=== PATIENT | female | born 1940 | race African-American/Black ===

== ENCOUNTER → 2017-01-04 16:08 | Outpatient (CLI) | payer MEDICARE, OTHER ==
[2016-02-28 13:22] VITALS: BMI 34.9
[~2017-01-04 16:08] MED LIST: BUMEX 1 MG TAB1 MG PO; CALAN SR180 MG PO; CATAPRES0.2 MG PO; CIPRO500 MG PO; COZAAR100 MG PO; DICLOFENAC SODI50 MG PO; GLUCOTROL 5 MG T5 MG PO; HYDRALAZINE HCL25 MG PO; HYDRALAZINE HCL50 MG PO; HYDROCODON-ACE1 EAC7 PO; ISOSORBIDE MONO30 M1 PO; Imdur PO; K-TAB10 MEQ PO; NORMODYNE / TR300 MG; NORMODYNE / TR300 MG PO; POTASSIUM CL MICRO PO; TYLENOL W/CODEI1 TAB; TYLENOL W/CODEI1 TAB PO; VISTARIL50 MG PO; ZANAFLEX4 MG PO; ZOCOR20 MG PO
[2017-01-04 16:43] LABS: BASOPHILS 0.3 % (0-2); EOSINOPHILS 2.8 % (0-7); HEMATOCRIT 29.8 % (36.0-48.0); HEMOGLOBIN 9.7 g/dL (12-16); IMMATURE GRANULOCYTES 0.1 % (0-5); MCH 26.9 pg (26.0-34.0); MCHC 32.6 g/dL (31.0-37.0); MCV 82.8 fL (80.0-100.0); MEAN PLATELET VOLUME 12.5 fL (7.4-10.4); MONOCYTES 9.7 % (2-11); NEUTROPHILS 65.1 % (40-80); WBC 7.8 10x3/uL (4.8-10.8)
[2017-01-04 17:10] LABS: PLATELET COUNT 326 10x3/uL (130-400)
[2017-01-04 17:31] LABS: % SATURATION 21 % (15-55); IRON 58 ug/dl (35-150); TOTAL IRON BIND CAPACITY 264 ug/dl (260-445); UNSAT IRON BIND CAPACITY 206 ug/dl (150-375)
[2017-01-04 17:47] LABS: T4 THYROXIN - FREE 1.13 ng/dL (0.76-1.46); THYROID STIMULATING HORMONE 0.98 uIU/mL (0.36-3.74)
== END | disposition home or self-care (01) ==
LOC: D.RAD 16:08
PROVIDERS: Internal Medicine Gastroenterology
DX: R53.83 Other fatigue (principal); R15.9 Full incontinence of feces; K59.00 Constipation, unspecified

== ENCOUNTER 2017-06-07 07:47 | Emergency (ER) | payer MEDICARE, OTHER ==
[2016-02-28 13:22] VITALS: BMI 34.9
== END 2017-06-07 09:03 | disposition home or self-care (01) ==
LOC: D.ER 07:47
DX: M25.512 Pain in left shoulder (principal); E11.9 Type 2 diabetes mellitus without complications; I10 Essential (primary) hypertension

== ENCOUNTER 2017-06-30 12:20 | Inpatient (IN) | payer MEDICARE, OTHER ==
[2017-06-30 19:06] LABS: BASOPHILS 0.2 % (0-2); EOSINOPHILS 0.3 % (0-7); HEMOGLOBIN 11.7 g/dL (12-16); IMMATURE GRANULOCYTES 0.2 % (0-5); LYMPHOCYTES 7.8 % (15-50); MCH 27.1 pg (26.0-34.0); MCHC 32.5 g/dL (31.0-37.0); MCV 83.3 fL (80.0-100.0); MEAN PLATELET VOLUME 11.4 fL (7.4-10.4); MONOCYTES 1.5 % (2-11); PLATELET COUNT 318 10x3/uL (130-400); RBC 4.32 10x6/uL (4.00-5.40); RDW 15.5 % (11.5-14.5); WBC 8.8 10x3/uL (4.8-10.8)
[2017-06-30 19:25] LABS: ALBUMIN 3.9 g/dL (3.4-5.0); ANION GAP 14.3 mmol/L (8-16); BILIRUBIN - TOTAL 0.48 mg/dL (0.2-1.3); CALCIUM 9.3 mg/dL (8.5-10.1); CARBON DIOXIDE 28.1 mmol/L (21.0-32.0); CREATININE - SERUM 1.5 mg/dL (0.6-1.3); POTASSIUM - SERUM 4.4 mmol/L (3.5-5.1); PROTEIN - SERUM 7.8 g/dL (6.4-8.2)
[2017-07-01] VITALS (26 sets, daily range): BP systolic 149–229; BP diastolic 74–104; BMI 29.4; BMI 29.8
--- NOTE | 2017-07-01 00:21 | NUR ---
PT ARRIVE TO ICU VIA ER STAFF. MOVED PT OVER X4 ASSIST. V/S: HR 61 BPM, BP 160/104, RR 22, SHALLOW, O2 SAT 97%, 1 L/MIN, TEMP 98.4 TEMPORAL. SHE COMPAINS OF PAIN IN HER L SHOULDER, ARM AND HAND A 10/10 AND DESCRIBES IT STABBING INTENSE PAIN. HEAT PACK PLACED ON SHOULDER AND SHE STATES THAT THE HEAT MAKES IT FEEL BETTER. S1S2 AUDIBLE, EXP WHEEZES HEARD BILAT THROUGHOUT ALL LOBES. ABD IS FLAT AND NON-TENDER TO TOUCH, BS ACTIVE X4. RADIAL AND PEDAL PULSES PALP. SCD'S PUT ON PT. SKIN IS CLEAR AND SMOOTH. PIV TO R HAND, SALINE LOC'D. BRIEF WAS PUT ON PT BY ER STAFF. BLANKETS COVERING PT PER REQUEST. BED ALARM ON, BED IN LOWEST POSITION. CALL LIGHT IN REACH. WILL CONT WITH POC.
--- NOTE | 2017-07-01 01:15 | NUR ---
SPOKE WITH DR. SAMUEL. NEW ORDERS RECIEVED. WILL CONT WITH POC.
--- NOTE | 2017-07-01 01:23 | NUR ---
ADMINISTERED PRN TYLENOL. REPOSITONED FOR COMFORT. WILL CONT WITH POC.
--- NOTE | 2017-07-01 01:30 | NUR ---
CALLED HOUSE SUPP FOR 0.2 MG CLONIDINE. ORDER PRINTED AND PUT ON [employer].
--- NOTE | 2017-07-01 02:00 | NUR ---
AWAITING CLONIDINE. PT IS LYING IN BED WITH TV ON. CALL LIGHT IN REACH.
--- NOTE | 2017-07-01 02:30 | NUR ---
ADMINISTERED CLONIDINE 0.2 MG BP 229/100. PT IS SLEEPING AT THIS TIME AND DOES NOT APPEAR TO BE IN ANY PAIN. HEAT PACK IS STILL ON L SHOULDER. SKIN ASSESSED, WNL. WILL CONT TO MONITOR.
--- NOTE | 2017-07-01 03:30 | NUR ---
PT REQUESTS NEW HEAT PACK. DELIVERED PROMPTLY. SHE IS NOT SCREAMING OUT IN PAIN AND IS DRIFTING OFF TO SLEEP. BP IS 216/87 HR 76 NORMAL SINUS RHYTHM. O2 SAT 99%. CALL LIGHT IN REACH. BED IN LOWEST POSITION. WILL CONT WITH POC.
[2017-07-01 04:25] LABS: BASOPHILS 0 % (0-2); EOSINOPHILS 0 % (0-7); HEMATOCRIT 35.6 % (36.0-48.0); HEMOGLOBIN 11.7 g/dL (12-16); LYMPHOCYTES 8.5 % (15-50); MCH 27.2 pg (26.0-34.0); MCHC 32.9 g/dL (31.0-37.0); MCV 82.8 fL (80.0-100.0); MEAN PLATELET VOLUME 11.5 fL (7.4-10.4); MONOCYTES 0.7 % (2-11); NEUTROPHILS 90.8 % (40-80); PLATELET COUNT 348 10x3/uL (130-400); RDW 15.7 % (11.5-14.5)
[2017-07-01 04:34] LABS: WBC 5.4 10x3/uL (4.8-10.8)
[2017-07-01 04:39] LABS: ANION GAP 13.2 mmol/L (8-16); CALCIUM 9.5 mg/dL (8.5-10.1); CARBON DIOXIDE 29.7 mmol/L (21.0-32.0); CREATININE - SERUM 1.3 mg/dL (0.6-1.3); POTASSIUM - SERUM 3.9 mmol/L (3.5-5.1)
--- NOTE | 2017-07-01 05:00 | NUR ---
PT SITTING UP IN BED REQUESTING FOOD AND BEVERAGE. DELIVERED SANDWICH TRAY AND REFRESHMENTS PROMPTLY. PT IS A&O X4 AND STATES THAT SHE IS IN PAIN. EXPLAINED TO HER THAT I CANNOT ADMINISTER ANY MORE PAIN MEDS TONIGHT DUE TO THE DECREASE IN HER RESP IN THE ER. SHE STATES THAT SHE UNDERSTANDS. REPOSITIONED FOR COMFORT. WILL CONT WITH POC.
[2017-07-01] MEDS ORDERED: NAPROSYN500 MG PO (08:41)
[2017-07-01] MEDS ORDERED: NORVASC5 MG PO (08:42)
[2017-07-01] MEDS ORDERED: ULTRAM50 MG PO (08:43)
--- NOTE | 2017-07-01 09:03 | NUR ---
0900 LABETALOL 300MG GIVEN PER MAR, WILL WATCH FOR EFFECTIVENESS.
[2017-07-01] MEDS ORDERED: CATAPRES0.1 MG PO (09:05)
[2017-07-01 10:26] LABS: CKMB 2.6 U/L (0.0-3.6)
--- NOTE | 2017-07-01 10:33 | NUR ---
NOTIFIED BY LAB OF BUMP IN [place] OF 0.09. SPOKE WITH DR. RAMSEY VIA PHONE. V/O FOR CARDIOLOGY CONSULT. SPOKE WITH MAXIMINO IN PRESSURE SUPERVISOR. AWARE OF CONSULT.
--- NOTE | 2017-07-01 10:46 | NUR ---
0700 AM ASSESSMENT DOCUMENTED PER FLOWSHEET. PATIENT IS C/O LEFT ARM PAIN FROM SHOULDER TO TIP OF FINGERS. PULSE PALP AND EQUAL BILATERAL ARMS. RATES PAIN 5/10. TYLENOL GIVEN ORDERED.
--- NOTE | 2017-07-01 10:56 | NUR ---
DR. WHITEHEAD AT BEDSIDE FOR CARDIOLOGY CONSULT. V/O FOR ECHO, BNP AND LOPRESSOR.
--- NOTE | 2017-07-01 11:37 | NUR ---
WENT TO FLUSH RIGHT HAND PIV, LINE IS BLOWN. PIV REMOVED WITH TIP INTACT. BANDAID APPLIED. NO VISIBLE ACESS, PATIENT REFUSES TO USE LEFT ARM. CASPER SAGASTUME CONTACTED FOR PIV.
--- NOTE | 2017-07-01 11:49 | NUR ---
1100 REASSESSMENT DOCUMENTED PER FLOWSHEET.
--- NOTE | 2017-07-01 12:58 | NUR ---
1230 OUT OF BED TO BEDSIDE CHAIR, COMPLETE BATH GIVEN, LOTION APPLIED TO ARMS/LEGS AND BACK. NON SLIP SOCKS APPLIED BEFORE AMBULATING TO CHAIR. SKIN 100% INTACT. LINENS TO BED CHANGED. PATIENT RESTING COMFORTABLY AT BEDSIDE.
--- NOTE | 2017-07-01 13:07 | NUR ---
20G PIV PLACED TO RIGHT UPPER ARM BY CASPER SAGASTUME USING ULTRASOUND GUIDANCE. SALINE LOCKED.
--- NOTE | 2017-07-01 15:15 | NUR ---
1500 REASSESSMENT DOCUMENTED PER FLOWSHEET. 1500 MEDS GIVEN PER MAR. PATIENT TRANSPORTED TO MRI VIA WHEELCHAIR BY EARLE.
--- NOTE | 2017-07-01 16:43 | NUR ---
BACK FROM MRI, VOIDED VIA BEDSIDE POTTY. BACK TO BEDSIDE CHAIR, EATING DINNER.
--- NOTE | 2017-07-01 19:10 | NUR ---
SHIFT ASSESSMENT COMPLETE. PT IS CRYING OUT IN PAIN STATING THAT HER SHOULDER IS HURTING HER A 10/10. REPOSITIONED FOR COMFORT AND ADMINISTERED PRN PAIN MEDS. V/S: HR 70, BP 188/87, RR 20, TEMP 97.7 ORAL. S1S2 AUDIBLE, NORMAL SINUS RHYTHM. ABD IS FLAT AND NON TENDER TO TOUCH, BS ACTIVE X4. PIV TO R UPPER ARM, SALINE LOC'D. SCD'S REMOVED AND SKIN ASSESSED, WNL. BED ALARM ON, SLIPPER SOCKS ON. HEAT PACK PLACED ON SHOULDER PER REQUEST. NO FURTHER NEEDS AT THIS TIME. WILL CONT TO MONITOR.
--- NOTE | 2017-07-01 20:15 | NUR ---
PT IS SCREAMING OUT IN PAIN STATING IT IS A 10/10. REPOSITIONED FOR COMFORT. PAGED DR. BOJORQUEZ. NEW ORDERS RECIEVED. WILL CONT TO MONITOR.
--- NOTE | 2017-07-01 20:28 | NUR ---
PLACED 0.4 SL NITRO TAB UNDER TONGUE. SHE STATES THAT SHE FEELS IF IT IS HELPING. LAB AT BEDSIDE. WILL CONT TO MONITOR.
[2017-07-01 21:21] LABS: CKMB 3.3 U/L (0.0-3.6); CREATINE KINASE 136 UL (21-215)
[2017-07-01 21:23] LABS: TROPONIN-I 0.091 ng/mL (0.000-0.060)
--- NOTE | 2017-07-01 21:30 | NUR ---
PT IS RESTING PEACEFULLY WITH NO SIGNS OF DISTRESS NOTED. BP 204/83 AT THIS TIME. SHE DENIES ANY REQUESTS. WILL CONT TO MONITOR.
--- NOTE | 2017-07-01 23:30 | NUR ---
REASSESSMENT COMPLETE. SHE REQUESTS TO SIT IN THE CHAIR AND STATES THAT SHE GOT BETTER REST THERE TODAY THAN IN THE BED. UP WITH ASSIST X1 TO CHAIR. FRESH PILLOWS AND BLANKETS PROVIDED. NO FURTHER CHANGES NOTED. WILL CONT WITH POC.
[2017-07-02] VITALS (24 sets, daily range): BP systolic 154–243; BP diastolic 70–123
--- NOTE | 2017-07-02 | NUR ---
0000: Pt resting in bed with eyes closed at this time. Pt without c/o. Allowed pt to cont to rest at this time. Pt HR 55-60 bpm.
--- NOTE | 2017-07-02 01:10 | NUR ---
PT RESTING IN CHAIR COMFORTABLY WITH NO SIGNS OF PAIN AT THIS TIME. WILL CONT TO MONITOR.
--- NOTE | 2017-07-02 03:30 | NUR ---
REASSESSMENT COMPLETE. NO CHANGES NOTED. PT CONTINUES TO SLEEP IN CHAIR. SHE STATES THAT HER PAIN IS A 5/10. REPOSITIONED AND LEANED CHAIR BACK FOR COMFORT. SHE STATEST THAT THAT FEELS BETTER. NO FURTHER REQUESTS. CALL LIGHT IN REACH. BP 203/90, HR 73, TEMP 99.0, RR 29, O2 SAT 98%. WILL CONT TO MONITOR.
[2017-07-02 04:24] LABS: BASOPHILS 0 % (0-2); EOSINOPHILS 0.5 % (0-7); HEMATOCRIT 32.3 % (36.0-48.0); HEMOGLOBIN 10.8 g/dL (12-16); IMMATURE GRANULOCYTES 0.3 % (0-5); LYMPHOCYTES 12.5 % (15-50); MCH 26.9 pg (26.0-34.0); MCHC 33.4 g/dL (31.0-37.0); MEAN PLATELET VOLUME 11.5 fL (7.4-10.4); MONOCYTES 8.9 % (2-11); NEUTROPHILS 77.8 % (40-80); PLATELET COUNT 342 10x3/uL (130-400); RBC 4.01 10x6/uL (4.00-5.40); RDW 15.5 % (11.5-14.5)
[2017-07-02 04:27] LABS: MCV 80.5 fL (80.0-100.0); WBC 10.1 10x3/uL (4.8-10.8)
[2017-07-02 04:55] LABS: C-REACTIVE PROTEIN 0.6 mg/dL (0.0-0.9); CALC OSMOLALITY 295 mosm/kg (275-300); CALCIUM 9.3 mg/dL (8.5-10.1); CARBON DIOXIDE 30.3 mmol/L (21.0-32.0); CHLORIDE - SERUM 104 mmol/L (98-107); CKMB 2.8 U/L (0.0-3.6); CREATININE - SERUM 1.6 mg/dL (0.6-1.3); GLUCOSE 190 mg/dL (74-106); POTASSIUM - SERUM 3.8 mmol/L (3.5-5.1); SODIUM 141 mmol/L (136-145); UREA NITROGEN 40 mg/dL (7-18); eGFR NON AFRICAN AMERICAN 33 mL/min (90-120)
[2017-07-02 05:05] LABS: TROPONIN-I 0.088 ng/mL (0.000-0.060)
--- NOTE | 2017-07-02 05:30 | NUR ---
ASSISTED PT BACK TO BED. STEADY GAIT. SHE STATES THAT SHE IS IN 10/10 PAIN. ADMINISTERED PRN PAIN MEDS AND PLACED A HEAT PACK ON L SHOULDER. WILL CONT TO MONITOR.
--- NOTE | 2017-07-02 07:54 | NUR ---
ASSISTED TO TOILET VIA STAND BY ASSIST, CONTINENT VOID. PT NOTED TO STATE OUT LOUD ABOUT HER DISCOMFORT. PHYSICIANS ARE AWARE. PT ALERT AND ORIENTED. WILL CONTINUE PLAN OF CARE.
--- NOTE | 2017-07-02 08:54 | NUR ---
RESTING QUIETLY AT THIS TIME. NO ACUTE DISTRESS NOTED. AWAKENS EASILY WHEN SPOKEN TO. WILL CONTINUE PLAN OF CARE.
--- NOTE | 2017-07-02 10:22 | NUR ---
ASSISTED TO TOILET VIA STAND BY ASSIST. CONTINENT VOID NOTED. PT NOTED TO STATE SHE FEELS MUCH BETTER. NO ACUTE DISTRESS NOTED. WILL CONTINUE PLAN OF CARE.
--- NOTE | 2017-07-02 11:18 | NUR ---
* Is the patient Alert and Oriented? Yes 0 * How many steps to enter\exit or inside your home? 1 0 * PCP Dr. Middleton 0 * Pharmacy [facility] in [place] 0 * Preadmission Environment Home Alone 0 * ADLs Independent 0 * Equipment Glucometer 0 * List name and contact numbers for known caregivers / representatives who currently or will assist patient after discharge: Matthew Carcamo [phone] RALEIGH Carcamo 0 * Additional services required to return to the preadmission environment? No 0 * Can the patient safely return to the preadmission environment? Yes 0 * Has this patient been hospitalized within the prior 30 days at any hospital? No Patient Name: SIRISHA ZHAO Admission Status: ER Accout number: [id number] Admission Date: 07-01-2017 : 1941 Admission Diagnosis:HYPOXEMIA Attending: AZAR SAMUEL Current LOS: 1 Planned Disposition: Home Primary Insurance: MEDICARE A & B Discharge Planning Comments: CM met with patient to assess dc plans/needs. Patient states she lives alone & is independent with all ADL's & AIDL's. She states her son or daughter in law will drive her home from hospital and will be available to help with any needs. She states she has had home health services in the past but does not think she will need them at dc at this time. CM will follow & assist as needed. Leather Belt Loop Cutter: Poonam Aguirre
--- NOTE | 2017-07-02 11:35 | NUR ---
NOTED CONSULT CHAVEZ DR GONZALEZ. WHEN CALLING DR DRAKE ANSWERING SERVICE TO PAGE TO NOTIFY OF CONSULT, THE ANSWERING SERVICE STATED THAT HE HAS ALREADY LEFT FOR THE WEEKEND AND IS ONLY TAKING CALLS FROM [facility] THIS WEEKEND AND NOT [facility]. CALLED DR BOJORQUEZ, PHYSICIAN WHO ORDERED CONSULT, FOR FURTHER ORDERS AND NOTED DR PEDRO IS ON THIS WEEKEND. PAGED AT THIS TIME. WAITING FOR CALLBACK. WILL CONTINUE PLAN OF CARE.
--- NOTE | 2017-07-02 11:41 | NUR ---
DR PEDRO IS NOTIFIED OF CONSULT AT THIS TIME.
--- NOTE | 2017-07-02 14:27 | NUR ---
ASSISTED TO BEDSIDE TOILET, CONTINENT VOID NOTED. PT UP IN BED AWAKE. NO ACUTE DISTRESS NOTED. PAIN LEVEL OF 2 OUT OF 10 TO LT ARM, PRN NORCO ADMIN. WILL CONTINUE PLAN OF CARE.
--- NOTE | 2017-07-02 16:11 | NUR ---
RESTING IN BED. RESPIRATIONS STEADY AND UNLABORED. NO ACUTE DISTRESS NOTED. AWAKENS EASILY WHEN SPOKEN TO. WILL CONTINUE PLAN OF CARE.
--- NOTE | 2017-07-02 17:22 | NUR ---
UP IN CHAIR BESIDE BED EATING SUPPER AT THIS TIME AND VISITING WITH VISITOR. DENIES ANY NEEDS. NO ACUTE DISTRESS NOTED. WILL CONTINUE PLAN OF CARE.
--- NOTE | 2017-07-02 19:02 | NUR ---
DR PEDRO HERE; ORDERS PLACED.
--- NOTE | 2017-07-02 19:45 | NUR ---
194: Faxed procedure for AM to [facility].
--- NOTE | 2017-07-02 20:00 | NUR ---
2000: Reviewed planned procedure with patient at this time. Pt verbalized understanding and asked for assistance to call family to review. Son called per pt request and update provided.
--- NOTE | 2017-07-02 20:30 | NUR ---
2030: Consents for planned procedure including blood and anesthesia reviewed with patient. Outcomes including risks and benefits reviewed with patient for procedure, blood administration, and anesthesia. Pt verbalized understanding and signed consents at this time.
--- NOTE | 2017-07-02 22:50 | NUR ---
2250: Pt crying out and thrashing in bed. Pt states he left shoulder and neck are hurting. Pt SBP >180 at this time. Pt rates pain 10/10. Rx admin at this time and warm pack placed on left shoulder. Pt states thankyou and I am so sorry.
[2017-07-03] VITALS (25 sets, daily range): BP systolic 152–207; BP diastolic 62–98
--- NOTE | 2017-07-03 00:30 | NUR ---
0030: Pt resting with eyes closed at this time. Pt SB/SR 55-65 bpm with SBP 160's at this time.
--- NOTE | 2017-07-03 03:30 | NUR ---
0330: Pt c/o pain in left shoulder. Pt describes as excrutiating pain. All measures to provide relief at this time. Rx admin as per EMAR. Pt remains SR 60's on CM with SBP 160-170.
--- NOTE | 2017-07-03 04:00 | NUR ---
0400: Pt assisted up OOB to bedside commode. Pt urinated 200cc of clear yellow UOP. Pt returned back to bed without difficulty. All monitors and alarms reestablished.
[2017-07-03 07:55] LABS: BASOPHILS 0.3 % (0-2); HEMATOCRIT 33.2 % (36.0-48.0); IMMATURE GRANULOCYTES 0.3 % (0-5); LYMPHOCYTES 24.9 % (15-50); MCHC 33.1 g/dL (31.0-37.0); MCV 81.4 fL (80.0-100.0); MONOCYTES 11.3 % (2-11); NEUTROPHILS 61.2 % (40-80); PLATELET COUNT 311 10x3/uL (130-400); RBC 4.08 10x6/uL (4.00-5.40); RDW 15.8 % (11.5-14.5)
[2017-07-03 08:01] LABS: WBC 7.2 10x3/uL (4.8-10.8)
--- NOTE | 2017-07-03 08:01 | NUR ---
UP IN BED VISITING WITH FAMILY. NOTED PT TO GO TO SURGERY TODAY. CONSENTS HAVE BEEN SIGNED AND FAMILY IS AWARE. PT DENIES ANY QUESTIONS OR CONCERNS. WILL CONTINUE PLAN OF CARE.
[2017-07-03 08:02] LABS: ANION GAP 10.6 mmol/L (8-16); CALCIUM 9.1 mg/dL (8.5-10.1); CARBON DIOXIDE 28.2 mmol/L (21.0-32.0); CREATININE - SERUM 1.4 mg/dL (0.6-1.3); POTASSIUM - SERUM 3.8 mmol/L (3.5-5.1)
[2017-07-03 08:52] LABS: INR 1.17 (0.85-1.17); PROTIME 14.8 SECONDS (11.6-15.0)
[2017-07-03 08:53] LABS: APTT 51.7 SECONDS (22.8-39.4)
--- NOTE | 2017-07-03 10:01 | NUR ---
UP IN BED VISITING WITH FAMILY. DENIES ANY NEEDS. NO ACUTE DISTRESS NOTED. WILL CONTINUE PLAN OF CARE.
[2017-07-03 11:31] LABS: APPEARANCE CLEAR (CLEAR); BILIRUBIN NEGATIVE (NEGATIVE); COLOR YELLOW (YELLOW); GLUCOSE NEGATIVE (NEGATIVE); KETONE NEGATIVE (NEGATIVE); NITRITE NEGATIVE (NEGATIVE); PROTEIN 3+ mg/dL (NEGATIVE); UROBILINOGEN NORMAL (NORMAL)
[2017-07-03 11:35] LABS: BACTERIA FEW /hpf (NONE SEEN); EPITHELIAL CELLS 0-5 /hpf (0-5); RED CELLS - URINE 0-5 /hpf (0-5)
--- NOTE | 2017-07-03 12:00 | NUR ---
UP IN BED VISITING WITH FAMILY AT THIS TIME. DENIES ANY NEEDS. NO ACUTE DISTRESS NOTED. PREOP HAS BEEN PERFORMED PER ORDERS. WILL CONTINUE PLAN OF CARE.
--- NOTE | 2017-07-03 13:35 | NUR ---
LEFT AT THIS TIME TO OR VIA BED ACCOMPANED BY OR STAFF. PT DENIES ANY NEEDS. NO ACUTE DISTRESS.
--- NOTE | 2017-07-03 15:00 | NUR ---
PT IN OR, WILL PERFORM REASSESSMENT WHEN PT RETURNS FROM PROCEDURE.
--- NOTE | 2017-07-03 17:27 | NUR ---
RECIEVED REPORT ON PT FROM PAULA IN OR. WAITING TO RECIEVE PT BACK TO UNIT FROM OR.
--- NOTE | 2017-07-03 17:38 | NUR ---
PT ARRIVED BACK TO UNIT FROM OR. PT IS DROWSY FROM POST OP. IS ALERT AND ORIENTED. STATES HAS SOME DISFOMFORT TO LT SHOULDER. PT IS HYPERTENSIVE, WILL ADMIN SCHEDULED ANTIHYPERTENSIVE MEDICATIONS. FAMILY IN ROOM SEEING PT AND HAVE SPOKEN WITH DR PEDRO FOR UPDATE. NO ACUTE DISTRESS NOTED. WILL CONTINUE PLAN OF CARE.
--- NOTE | 2017-07-03 19:00 | NUR ---
1900: Pt rec'd resting HOB 45 degrees with eyes closed. Open to verbal and answers all questions. Pt moves extrem x4 without difficulty vs gravity. Soft cervical collar in place. Small incision to left distal neck is visible. No s/s of bleeding, oozing, swelling. Trachea is midline and no s/s of stridor auscultated. Pt remains with HTN. Rx admin as per orders. Pt SB/SR 55-60 bpm. Right PIV SL'd at this time. Changed to LR at 30 cc/hr for IVPB and PRN medication admin. ABD soft NT BSx4 active. Pt able to swallow without difficulty at this time.
--- NOTE | 2017-07-03 19:08 | NUR ---
SPOKE WITH DR PEDRO, ORDERS RECIEVED.
--- NOTE | 2017-07-03 21:00 | NUR ---
2100: Pt SPO2 90-91%. 022LNC placed at this time. MMP and no cyanosis noted. No change in dressing/incision sites. Trachea remains midline and no stridor audible. Pt remains drowsy, but opens eyes to verbal and answers all questions and follows commands without difficulty.
--- NOTE | 2017-07-03 23:00 | NUR ---
2300: No change in pt RESP/CV/NV status. Pt remains drowsy, but opens eyes to verbal and answers questions approp.
[2017-07-04] VITALS (15 sets, daily range): BP systolic 139–204; BP diastolic 49–108
--- NOTE | 2017-07-04 01:00 | NUR ---
0100: No change in pt RESP/CV/NV status. No change in IVF/UOP. Pt remains in bed with eyes closed without c/o. SB 55 bpm with SBP 150-160 at this time. No bleeding, oozing, or swelling noted.
--- NOTE | 2017-07-04 04:00 | NUR ---
0400: Pt awake, alert, and oriented. Pt request bed ocampo. Pt voided 300cc of clear yellow UOP. Pt BP increased while awake. (See VS) Pt without c/o at this time. Denies pain and/or nausea. Incision site unchanged from assessment. No s/s of bleeding, oozing, swelling noted.
[2017-07-04 04:06] LABS: BASOPHILS 0 % (0-2); EOSINOPHILS 0 % (0-7); HEMATOCRIT 32.8 % (36.0-48.0); HEMOGLOBIN 10.6 g/dL (12-16); IMMATURE GRANULOCYTES 0.1 % (0-5); LYMPHOCYTES 6.7 % (15-50); MCH 26.6 pg (26.0-34.0); MCHC 32.3 g/dL (31.0-37.0); MCV 82.4 fL (80.0-100.0); MEAN PLATELET VOLUME 11.4 fL (7.4-10.4); NEUTROPHILS 92.2 % (40-80); PLATELET COUNT 327 10x3/uL (130-400); RBC 3.98 10x6/uL (4.00-5.40); RDW 15.5 % (11.5-14.5); WBC 6.8 10x3/uL (4.8-10.8)
[2017-07-04 04:18] LABS: ALBUMIN 3.2 g/dL (3.4-5.0); BILIRUBIN - TOTAL 0.27 mg/dL (0.2-1.3); CALCIUM 8.9 mg/dL (8.5-10.1); CARBON DIOXIDE 27.7 mmol/L (21.0-32.0); CREATININE - SERUM 1.3 mg/dL (0.6-1.3); POTASSIUM - SERUM 4.7 mmol/L (3.5-5.1); PROTEIN - SERUM 6.5 g/dL (6.4-8.2)
--- NOTE | 2017-07-04 07:47 | NUR ---
UP IN BED AT THIS TIME EATING BREAKFAST VIA SET UP ASSIST. PT DENEIS ANY NEEDS. STATES SHE IS IN NO PAIN WHATSOEVER. NO ACUTE DISTRESS NOTED. WILL CONTINUE PLAN OF CARE.
--- NOTE | 2017-07-04 09:12 | NUR ---
CONTINENT VOID NOTED VIA BEDPAN. PT LYING IN BED. DENIES ANY NEEDS. NO ACUTE DISTRESS NOTED. CALL LIGHT IN REACH. WILL CONTINUE PLAN OF CARE.
--- NOTE | 2017-07-04 10:01 | NUR ---
RESTING IN BED AT THIS TIME. RESPIRATIONS STEADY AND UNLABORED RATE. DENIES ANY NEEDS. AWAKENS EASILY WHEN SPOKEN TO. NO ACUTE DISTRESS NOTED. WILL CONTINUE PLAN OF CARE.
--- NOTE | 2017-07-04 13:25 | NUR ---
PER DR PEDRO, OKAY TO TRANSFER. ALSO DC DECADRON AND START MEDROL DOSE PACK. ALSO PT DOES NOT NEED TO WEAR COLLAR UNLESS SHE WANTS TO. WILL PLACE ORDERS.
--- NOTE | 2017-07-04 14:35 | NUR ---
NOTED ORDER FOR PT TO TRANSFER TO ROOM 2206. REPORT GIVEN TO RECIEVING NURSE. WILL TRANSFER PT SHORTLY.
--- NOTE | 2017-07-04 15:37 | NUR ---
TRANSFERRED TO ROOM 2206 VIA BED ACCOMPANIED BY HOSPITAL STAFF. PTS SON, JUJU, NOTIFIED OF PT TRANSFER TO NEW ROOM. TRANSFERRED WITH ALL PERSONAL ITEMS. NO ACUTE DISTRESS NOTED. NO FURTHER ACTIONS.
--- NOTE | 2017-07-04 15:45 | NUR ---
PT AOX4 RESP EVEN AND NONLABORED PT DENIES NEEDS AT THIS TIME SRX2 BED AT LOWEST SETTING CALL LIGHT WITHIN REACH WILL CONTINUE TO MONITOR
--- NOTE | 2017-07-04 19:51 | NUR ---
REC'D IN BED AWAKE AND ALERT. RESP EVEN AND UNLABOREDE WITH NO DISTRESS NOTED. CAN EXPRESS NEEDS AND WANTS. UP WITH ASSIST. NO C/O NOTED OR VOICED AT THIS TIME. ASSESSMENT COMPLETED. C/L IN REACH AT BEDSIDE.
[2017-07-05] VITALS: BP 169/58
[2017-07-05 04:00] VITALS: BP 104/58
[2017-07-05 04:37] LABS: BASOPHILS 0 % (0-2); EOSINOPHILS 0 % (0-7); HEMATOCRIT 29.9 % (36.0-48.0); HEMOGLOBIN 9.9 g/dL (12-16); IMMATURE GRANULOCYTES 0.2 % (0-5); LYMPHOCYTES 6.8 % (15-50); MCH 26.9 pg (26.0-34.0); MCHC 33.1 g/dL (31.0-37.0); MCV 81.3 fL (80.0-100.0); MEAN PLATELET VOLUME 11.7 fL (7.4-10.4); MONOCYTES 10.2 % (2-11); NEUTROPHILS 82.8 % (40-80); PLATELET COUNT 296 10x3/uL (130-400); RBC 3.68 10x6/uL (4.00-5.40); RDW 15.3 % (11.5-14.5)
--- NOTE | 2017-07-05 04:39 | NUR ---
RESTING IN BED WITH EYES CLOSED EASILY AROUSED WHEN NAME IS CALLED. NO DISTRESS OR C/O NOTED. C/L IN REACH AT BEDSIDE.
[2017-07-05 04:48] LABS: ANION GAP 11.1 mmol/L (8-16); CALCIUM 8.4 mg/dL (8.5-10.1); CARBON DIOXIDE 26.9 mmol/L (21.0-32.0); CREATININE - SERUM 1.5 mg/dL (0.6-1.3)
[2017-07-05 04:49] LABS: WBC 11.4 10x3/uL (4.8-10.8)
--- NOTE | 2017-07-05 07:10 | NUR ---
REPORT RECEIVED, ASSUMED CARE OF PT. RESTING WITH EYES SHUT, EASILY AROUSED. L FOREARM AND R WRIST IV SALINE LOCKED, DRSG CLEAN, DRY AND INTACT. NECK SOFT COLLAR IN PLACE. SCD'S IN PLACE BILATERALLY. NO NEEDS VOICED AT THIS TIME. BED IN LOWEST POSITION, SIDE RAILS UP X 2, CALL LIGHT WITHIN REACH.
[2017-07-05 08:31] VITALS: BP 185/63
--- NOTE | 2017-07-05 09:50 | NUR ---
PT C/O MIDSTERNAL PAINS RELIEVED WITH BELCHING. VS FOLLOWS O2 98%, PULSE 69 BPM, RESPIRATIONS 16, BLOOD PRESSURE 180/72.
--- NOTE | 2017-07-05 11:30 | NUR ---
LEFT MESSAGE WITH DR. SAMUEL OFFICE CONCERNING BELCHING PAINS, AWAITING RETURN CALL
[2017-07-05 12:43] VITALS: BP 139/51
--- NOTE | 2017-07-05 14:21 | NUR ---
NUTRITION F/U CHART REVIEWED. PT WITH 75 TO 100% INTAKE RECENT MEALS. WILL CONTINUE TO PROVIDE DIET, MONITOR PO INTAKE. RD FOLLOWING
--- NOTE | 2017-07-05 14:30 | NUR ---
REHAB PRESCREENING Rehab referral received and chart reviewed. This patient has a PT Evaluation ordered but it is not documented as completed. Rehab will continue to follow for potential to meet admission criteria after PT eval is complete. Thank you for this referral! Tatyana Colon, WASHER AND CRUSHER TENDER Rehab Purchasing Department Clerk
[2017-07-05 16:27] VITALS: BP 180/60
--- NOTE | 2017-07-05 16:33 | NUR ---
REHAB PRESCREENING Ms. Rowland is a good candidate for ARU. Paper screen is in progress and will be submitted to PD and MD for approvals. Once approved, she will be ready for admission to rehab. Thank you for this referral! Tatyana Colon, NURSE MANAGER Rehab African Studies Professor
--- NOTE | 2017-07-05 18:31 | NUR ---
SPOKE WITH DR. GUZMAN 2406 CARDIAC ENZYMES, NITRO SL Q5 MIN X 3 PRN, MYLANTA 2 TSP Q4 HR PRN ORDERED. PT STATES NO RELIEF WITH 1ST NITRO, SOME RELIEF AFTER 2ND NITRO AND MYLANTA. LAB HERE TO DRAW CARDIAC ENZYMES AT THIS TIME.
[2017-07-05 19:33] LABS: CKMB 0.6 U/L (0.0-3.6); CREATINE KINASE 199 UL (21-215); TROPONIN-I 0.018 ng/mL (0.000-0.060)
--- NOTE | 2017-07-05 19:40 | NUR ---
RECIEVED SHIFT REPORT. PT IS LYING IN BED. ALERT AND ORIENTED AND ABLE TO VERBALIZE NEEDS. IV'S ARE PATENT AND SALINE LOC AT THIS TIME. PT IS AMBULATORY BUT WAS INSTRUCTED TO CALL FOR ANY ASSISTANCE NEEDED. INCISION TO LEFT NECK C/D/I. SOFT COLLAR PUT BACK IN PLACE. PT STATES PAIN IS 5/10. O2 @ 2 PER NASAL CANNULA. NO NEEDS ARE VERBALIZED AT THIS TIME. VISITOR IS AT THE BEDSIDE. WILL CONTINUE TO MONITOR. SIDE RAILS ARE UP X 2. BED IS IN LOWEST POSITION. CALL LIGHT IS WITHIN REACH.
[2017-07-05 20:00] VITALS: BP 149/55
--- NOTE | 2017-07-05 20:02 | NUR ---
CALLED DR GUZMAN WITH RESULTS OF CARDIAC ENZYMES. NEW ORDER FOR IV PROTONIX DAILY AND IF CHEST PAIN PERSISTS TO CONSULT CARDIOLOGY.
--- NOTE | 2017-07-05 21:05 | NUR ---
SHIFT ASSESSMENT COMPLETED. SCHEDULED APRESOLIN, CATAPRES, AND NORMODYNE HELD DUE TO B/P=149/55. PT RECIEVED 2 UNITS INSULIN PER SLIDING SCALE FOR SURW=903. OTHER MEDICATION ADMINISTERED PER ORDER. NO NEEDS ARE VOICED. WILL MONITOR. SIDE RAILS X 2. BED LOW. CALL LIGHT IN REACH.
[2017-07-06] VITALS: BP 177/56
[2017-07-06 04:00] VITALS: BP 196/60
--- NOTE | 2017-07-06 07:20 | NUR ---
REPORT RECEIVED, ASSUMED CARE OF PT. SITTING UP IN CHAIR, NO NEEDS VOICED AT THIS TIME. L WRIST AND R FOREARM IV'S SALINE LOCKED, DRSG C/D/I. O2 VIA NASAL CANNULA IN PLACE WITH 2L. NO NEEDS VOICED AT THIS TIME. BED IN LOWEST POSITION, SIDE RAILS UP X 2, CALL LIGHT WITHIN REACH.
[2017-07-06 08:40] VITALS: BP 174/82
[2017-07-06] MEDS ORDERED: PROTONIX40 MG PO (09:32)
[2017-07-06] MEDS ORDERED: MYLANTA / MAALO30 ML GT (09:33)
[2017-07-06] MEDS ORDERED: MEDROL8 MG PO (09:33)
[2017-07-06] MEDS ORDERED: ZOFRAN4 MG PO (09:34)
[2017-07-06] MEDS ORDERED: HUMALOG 30100 UNITS/ SC (09:34)
[2017-07-06] MEDS ORDERED: HYDROCODON-ACE1 EAC7 PO (09:35)
[2017-07-06] MEDS ORDERED: HYDRALAZINE HCL10 MG PO ×2 (09:36→09:44)
[2017-07-06] MEDS ORDERED: ACETAMINOPHEN325 MG PO (09:36)
[2017-07-06] MEDS ORDERED: CATAPRES0.2 MG PO (09:42)
[2017-07-06] MEDS ORDERED: NORMODYNE / TR300 MG PO (09:43)
[2017-07-06] MEDS ORDERED: ISOSORBIDE MONO30 M1 PO (09:43)
[2017-07-06] MEDS ORDERED: COZAAR100 MG PO (09:43)
[2017-07-06] MEDS ORDERED: NITROSTAT0.4 MG SL (09:43)
[2017-07-06 11:50] VITALS: BP 165/63
--- NOTE | 2017-07-06 12:03 | OP ---
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 PROCEDURES: Anterior cervical discectomy and fusion with removal of osteophytes and foraminal discectomy at C6-C7 and C7-T1, left; colonial interbody cages with PEEK material, [employer] stem cell bone allograft and a VIP anterior cervical plate and screws from [employer]. DESCRIPTION AND TECHNIQUE: After induction of general endotracheal anesthesia, the patient was positioned supine on the operating table. The neck was prepped and draped in usual sterile fashion. Fluoroscopic x-ray and Brackenridge localized the C6 vertebral body. A transverse skin incision was carried out from the midline to the sternocleidomastoid muscle using blunt and sharp dissection with Metzenbaum scissors. I proceeded in an avascular plane medial to the carotid sheath. The C6-C7 and C7-T1 interspaces were identified with fluoroscopic x-ray and a spinal needle. The longus colli muscles were elevated from the bodies of C6, C7 and T1. Osteophytes were removed anteriorly with Adson rongeurs. A self-retaining retractor was placed deep to the longus colli muscles. Meadow distracting pins were placed at the bodies of C6-C7 and C7-T1. The disc material was removed with pituitary rongeurs and curettes posteriorly. Osteophytes were drilled away and there was an obvious disc herniation within the left foramina at C7-T1. This was removed with pituitary rongeurs. The posterior longitudinal ligament was removed with Cloward rongeurs. The endplates were prepared with curettes. PEEK interbody cages were placed in each interspace, the bodies were filled with [employer] allograft stem cells. Following this, a 34-mm VIP anterior cervical plate was used to span the bodies of C6, C7 and T1. The 16-mm screws were placed through the holes of the plate. Locking cams were tightened down over the screw heads. Good position of the hardware was confirmed with fluoroscopic x-ray. Meticulous hemostasis was maintained throughout the wound. The platysma and subdermal layer were closed with interrupted 3-0 Vicryl suture. The skin was reapproximated with Steri-Strips and benzoin. A sterile dressing was applied to the wound. The patient was awakened in good condition and taken to recovery. All counts were reported as correct. Estimated blood loss was minimal. TRANSINT:[id number] Voice Confirmation ID: [id number] DOCUMENT ID: [id number] MARILUZ PEDRO MD at 1203 CC: [id number] DICTATION DATE: 07/04/172157 UNDERCOLLAR BASTER: 07/04/17 [address] [facility] [address] [id number]
--- NOTE | 2017-07-06 13:29 | NUR ---
REPORT CALLED TO SACHI THORNE, REHAB
--- NOTE | 2017-07-06 13:40 | NUR ---
PT DISCHARGE INSTURCTIONS TO [facility] IN PT REHAB GIVEN ORDERED, PT VERBALIZED UNDERSTNADING AND SIGNED.
--- NOTE | 2017-07-06 13:43 | NUR ---
L HAND AND R WRIST IV'S D/C'D, BLEED CONTROL, BANDAGE APPLIED.
--- NOTE | 2017-07-06 14:45 | NUR ---
PT TRANSPORTED BY HOSPITAL STAFF TO INPATIENT REHAB. PERSONAL BELONGINGS WITH PT.
--- NOTE | 2017-08-02 09:15 | EC ---
PATIENT:SIRISHA ZHAO DATE OF SERVICE: 07/01/17 SEX: F MEDICAL RECORD: [id number] DATE OF : 42 LOCATION:[facility] AGE OF PATIENT: 77 ADMISSION DATE: 07/01/17 REFERRING PHYSICIAN: INTERPRETING PHYSICIAN: BEN WHITEHEAD MD ECHOCARDIOGRAM REPORT ECHO CHARGES 4 ECHO COMPLETE CLINICAL DIAGNOSIS: HTN ECHOCARDIOGRAPHIC MEASUREMENTS (adult normal given) AC root (d.<3.7cm) 2.7 cm LV Septum d (<1.2 cm> 1.6 cm Valve Excursion 1.8 cm LV Septum (systole) 2.0 cm Left Atria (s.<4.0cm> 4.4 cm LVPW d(<1.2cm) 1.4 cm RV (d.<2.3cm) 3.0 cm LVPW (sytole) 1.9 cm LV diastole(<5.6CM) 5.2 cm MV E-F(>70mm/sec) cm LV systole 2.9 cm LVOT Diameter 1.9 cm MV exc.(>10mm) 1.7 cm Est.ejection fraction (50-75%) % Pericardial Effusion Y DOPPLER: LVIT cm/sec A 105 cm/sec E 82.0 cm/sec LA cm/sec RVSP mmHg LVOT 75 cm/sec AOP1/2T m/s Asc. Ao 121 cm/sec RVOT 66 cm/sec RA cm/sec PA 97 cm/sec AV Gradient Peak 5.82 mmHg AV Mean 3.06 mmHg AV Area 2.2 cm MV Gradient Peak 7.64 mmHg MV Mean 3.09 mmHg MV Area cm COMMENTS: Slat Twister: Critical Care Registered Nurse: CONRADO DATE OF SERVICE: 07/01/2017 PROCEDURE: Transthoracic echocardiogram. FINDINGS: 1. Left ventricle has moderate concentric left ventricular hypertrophy with an ejection fraction of 65%. Inflow characteristics are consistent with diastolic dysfunction. 2. The left atrium is moderately dilated. 3. The mitral valve has mild mitral regurgitation. ECHOCARDIOGRAM REPORT [id number] SIRISHA ZHAO JEANINE 4. Aortic valve is a trileaflet structure overall normal, no evidence of significant stenosis or regurgitation. 5. The tricuspid valve is normal structurally and functionally. 6. The right ventricle is mildly dilated with RVH. 7. The right ventricular systolic pressures are normal. 8. There is no pericardial effusion. 9. There is no pleural effusion. CONCLUSIONS: The patient has evidence of hypertensive heart disease without significant wall motion abnormalities or valvular abnormalities on this study. TRANSINT:[id number] Voice Confirmation ID: [id number] DOCUMENT ID: [id number] 07/09/2017 Edited to correct date of service, dmm. BEN WHITEHEAD MD at 0915 CC: [id number] DICTATION DATE: 07/02/17925 SOLE ROUNDING MACHINE OPERATOR: 07/02/17 1037 DIS IN 07/06/17 [place] [id number] [place] [address]
== END 2017-07-06 14:45 | DRG 983 ==
LOC: D.ER 12:20 → D.SDCHOLD 21:00 → D.ICU 23:15 → D.SDCHOLD 23:15 → D.ICU 23:15 → OBSVTIME 23:16 → D.ICU 07-01 08:28 → D.MS 07-01 08:28
PROVIDERS: Family Medicine; Neurological Surgery; Physician Assistant; ADMIT Family Medicine
PROC: 0RG40A0 Fusion of Cervicothoracic Vertebral Joint with Interbody Fusion Device, Anterior Approach, Anterior Column, Open Approach (ICD-10-PCS; 2017-07-03)
PROC: 0RB50ZZ Excision of Cervicothoracic Vertebral Disc, Open Approach (ICD-10-PCS; 2017-07-03)
PROC: 0RG10K0 Fusion of Cervical Vertebral Joint with Nonautologous Tissue Substitute, Anterior Approach, Anterior Column, Open Approach (ICD-10-PCS; 2017-07-03)
PROC: 0RG40K0 Fusion of Cervicothoracic Vertebral Joint with Nonautologous Tissue Substitute, Anterior Approach, Anterior Column, Open Approach (ICD-10-PCS; 2017-07-03)
PROC: 0RB30ZZ Excision of Cervical Vertebral Disc, Open Approach (ICD-10-PCS; 2017-07-03)
PROC: 0RG10A0 Fusion of Cervical Vertebral Joint with Interbody Fusion Device, Anterior Approach, Anterior Column, Open Approach (ICD-10-PCS; principal; 2017-07-03 09:15)
DX: I16.0 Hypertensive urgency (principal); T40.2X5A Adverse effect of other opioids, initial encounter; J70.9 Respiratory conditions due to unspecified external agent; R09.02 Hypoxemia; M25.512 Pain in left shoulder; E11.9 Type 2 diabetes mellitus without complications; M54.12 Radiculopathy, cervical region; M48.02 Spinal stenosis, cervical region; M54.13 Radiculopathy, cervicothoracic region; M50.223 Other cervical disc displacement at C6-C7 level; M51.24 Other intervertebral disc displacement, thoracic region; K59.00 Constipation, unspecified; M25.78 Osteophyte, vertebrae

== ENCOUNTER 2017-07-06 15:17 | Inpatient (IN) | payer MEDICARE, OTHER ==
[~2017-07-06 15:17] MED LIST changes: +ACETAMINOPHEN325 MG PO; +CATAPRES0.1 MG PO; +HUMALOG 30100 UNITS/ SC; +HYDRALAZINE HCL10 MG PO; +MEDROL8 MG PO; +MYLANTA / MAALO30 ML GT; +NAPROSYN500 MG PO; +NITROSTAT0.4 MG SL; +NORVASC5 MG PO; +PROTONIX40 MG PO; +ULTRAM50 MG PO; +ZOFRAN4 MG PO
[2017-07-06 15:41] VITALS: BP 187/65; BMI 30.4
--- NOTE | 2017-07-06 19:06 | NUR ---
RECIEVED UP IN BED WITH FAMILY AT BEDSIDE. NO S/S OF DISTRESS OBSERVED. CALL LIGHT AND OVERBED TABLE IN REACH.
[2017-07-06 23:38] VITALS: BP 183/76
--- NOTE | 2017-07-07 02:31 | NUR ---
RESTING IN BED WITH EYES CLOSED. NO S/S OF DISTRESS OBSERVED. CONTINENT OF B/B. USES CALL LIGHT FOR ASSIST TO TOILET. CALL LIGHT AND OVERBED TABLE IN REACH.
[2017-07-07 07:06] LABS: BASOPHILS 0.1 % (0-2); EOSINOPHILS 0.2 % (0-7); HEMATOCRIT 30.8 % (36.0-48.0); IMMATURE GRANULOCYTES 0.2 % (0-5); LYMPHOCYTES 12.2 % (15-50); MCHC 32.5 g/dL (31.0-37.0); MCV 83.2 fL (80.0-100.0); MEAN PLATELET VOLUME 11.7 fL (7.4-10.4); NEUTROPHILS 79.3 % (40-80); PLATELET COUNT 286 10x3/uL (130-400); RDW 15.4 % (11.5-14.5); WBC 8.4 10x3/uL (4.8-10.8)
[2017-07-07 07:20] LABS: ANION GAP 8.5 mmol/L (8-16); CALCIUM 8.3 mg/dL (8.5-10.1); CARBON DIOXIDE 28.9 mmol/L (21.0-32.0); CREATININE - SERUM 1.1 mg/dL (0.6-1.3); POTASSIUM - SERUM 4.4 mmol/L (3.5-5.1)
[2017-07-07 07:57] VITALS: BMI 30.3
--- NOTE | 2017-07-07 08:00 | NUR ---
SHIFT ASSMT COMPLETED.BREAKFAST GIVEN.DENIES NEEDS.
[2017-07-07 08:16] VITALS: BP 196/78
--- NOTE | 2017-07-07 12:00 | NUR ---
SITTING UP EATING LUNCH.CL IN REACH.
--- NOTE | 2017-07-07 16:00 | NUR ---
RESTING QUIETLY.CL IN REACH.
--- NOTE | 2017-07-07 17:55 | NUR ---
CARE TEAM MEETING: PATIENT NEW TO UNIT AND WILL BE RA AT NEXT MEETING.
--- NOTE | 2017-07-07 19:08 | NUR ---
RESTING IN BED WITH EYES OPEN AND FAMILY AT BEDSIDE.
[2017-07-07 19:39] VITALS: BP 149/67
--- NOTE | 2017-07-07 21:41 | NUR ---
RESTING IN BED WITH EYES CLOSE AND LAYING ON HER LEFT SIDE. DENIES ANY PAIN. CALL LIGHT AND OVERBED TABLE IN REACH.
--- NOTE | 2017-07-08 04:02 | NUR ---
ASSISTED TO TOILET. WALKS WITH WALKER WITH STAND BY ASSIST. REQUESTED SOFT COLLAR TO BE PUT ON . ABLE TO TRANSFER WITH STANDBY ASSIST. CALL LIGHT AND OVERBED TABLE IN REACH.
--- NOTE | 2017-07-08 06:11 | NUR ---
RESTING IN BED WITH EYES CLOSED. NO S/S OF DISTRESS OBSERVED. EASILY AROUSES WITH VERBAL STIMULI. TAKES MEDICATION WITHOUT DIFFICULTY. CALL LIGHT AND OVERBED TABLE IN REACH.
--- NOTE | 2017-07-08 08:00 | NUR ---
SHIFT ASSMT COMPLETED.
[2017-07-08 08:53] VITALS: BP 189/65
--- NOTE | 2017-07-08 12:00 | NUR ---
SITTING UP EATING LUNCH.
--- NOTE | 2017-07-08 16:00 | NUR ---
SITTING UP IN WC.DENIES NEEDS.VISITING WITH FAMILT.
--- NOTE | 2017-07-08 20:06 | NUR ---
PT. IN BED WITH HOB UP FOR COMFORT. EYES CLOSED AND RESP. EVEN. CALL LIGHT WITHIN REACH.
--- NOTE | 2017-07-08 21:20 | NUR ---
GIVEN GRAHAMS CRACKER AND APPLESAUCE FOR BED TIMES SNACK.
[2017-07-09 00:18] VITALS: BP 172/71
--- NOTE | 2017-07-09 04:05 | NUR ---
REST IN BED, EYE CLOSE, CALL LIGHT IN REACH.
[2017-07-09 05:55] LABS: BASOPHILS 0.1 % (0-2); EOSINOPHILS 1.1 % (0-7); HEMATOCRIT 31.2 % (36.0-48.0); IMMATURE GRANULOCYTES 0.4 % (0-5); LYMPHOCYTES 10.9 % (15-50); MCH 27.1 pg (26.0-34.0); MCHC 32.1 g/dL (31.0-37.0); MCV 84.6 fL (80.0-100.0); MEAN PLATELET VOLUME 12.1 fL (7.4-10.4); MONOCYTES 8.7 % (2-11); NEUTROPHILS 78.8 % (40-80); PLATELET COUNT 332 10x3/uL (130-400); RBC 3.69 10x6/uL (4.00-5.40); RDW 15.6 % (11.5-14.5)
[2017-07-09 06:17] LABS: ANION GAP 10.4 mmol/L (8-16); CALCIUM 8.7 mg/dL (8.5-10.1); CARBON DIOXIDE 27.3 mmol/L (21.0-32.0); CREATININE - SERUM 1.1 mg/dL (0.6-1.3); POTASSIUM - SERUM 4.7 mmol/L (3.5-5.1)
[2017-07-09 06:33] LABS: HEMOGLOBIN A1C 7.2 % (4.8-6.0)
--- NOTE | 2017-07-09 07:43 | NUR ---
RESTING QUIETLY IN BED. CALL LIGHT IN REACH. BED IN LOWEST POSITION.
[2017-07-09 08:23] VITALS: BP 198/73
--- NOTE | 2017-07-09 12:46 | NUR ---
SITTING UP IN W/C IN ROOM EATING LUNCH. CALL LIGHT IN REACH
--- NOTE | 2017-07-09 16:52 | RHP ---
PATIENT: SIRISHA ZHAO [facility] MEDICAL RECORD: [id number] ACCOUNT: [id number] LOCATION:[facility]1118 : 41 ADMISSION DATE: 07/06/17 REHABILITATION HISTORY AND PHYSICAL EXAMINATION POST ADMISSION PHYSICIAN EXAMINATION DATE OF ADMISSION: 07/06/2017 ADMITTING DIAGNOSIS: Cervical radiculopathy. HISTORY OF PRESENT ILLNESS: The patient is a 77-year-old admitted to the rehab with nontraumatic spinal cord impairment and diagnosed cervical radiculopathy with spinal cord stenosis. She has got a history of hypertension and diabetes. She was admitted to ICU for 4 days with respiratory compromise and overload of analgesics. She has been having neck and shoulder pain, taking narcotics for this. She was off her blood pressure medicines for several days and developed a rebound hypertension with systolics greater than 200. A 12-lead EKG showed normal sinus rhythm with no ischemic changes. Cardiac enzymes did show a positive troponin secondary to stress leak with demand ischemia for hypertension. Recent imaging revealed cervical stenosis, neurosurgical consult was obtained. She was seen by Dr. Phillips for upper extremity pain and paresthesias, over the 10/10 pain level, unrelieved by conservative therapy. She also had some weakness in her left hand. She underwent an ACDF on C6-7 and C7-T1 on July 03. Prior to this admission, she was living alone and was completely independent with ADLs and ambulation. Currently, mod assist with ADLs, max assist with ambulation. She will require intensive therapy to return back to her prior level of functioning. COMORBIDITIES: Include hypertension, spinal stenosis, respiratory compromise, shoulder pain, overdose with analgesics, diabetes, status post anterior cervical discectomy and fusion. PAST MEDICAL HISTORY: Significant for diabetes and edema. PAST SURGICAL HISTORY: Includes gallbladder surgery, hysterectomy and hemorrhoids. ALLERGIES: No known drug allergies. CURRENT MEDICATIONS: Include Protonix 40 mg daily, Cozaar 100 mg daily and isosorbide 30 mg daily. She is on a tapering dose of prednisone, Zofran 4 mg q.6 hours p.r.n. nausea and vomiting, Nitrostat p.r.n., Mylanta as needed, labetalol 300 mg t.i.d., insulin, she is on a low-resistant sliding scale, Agness 1 tab q.4 hours p.r.n., Apresoline 10 mg q.6 hours p.r.n. elevated blood pressure, clonidine 0.2 mg t.i.d., Tylenol 325 q.4 hours as needed and polyethylene glycol 17 grams in 8 ounces of water daily. HABITS: No alcohol or tobacco use. FAMILY HISTORY: Noncontributory. SOCIAL HISTORY: The patient hopes to return back home and get back to her prior level of functioning. REVIEW OF SYSTEMS: HISTORY AND PHYSICAL [id number] SIRISHA ZHAO GENERAL: She does not complain of any weakness or fatigue. HEENT: Denies cold, cough, or congestion. CARDIOVASCULAR: Denies chest pain. PHYSICAL EXAMINATION: VITAL SIGNS: Stable, afebrile. GENERAL: Elderly female in no acute distress, alert upon exam. HEENT: Normocephalic and atraumatic. Mucosa moist. NECK: Supple, with no lymphadenopathy. LUNGS: Clear at this time. HEART: Regular rate and rhythm. ABDOMEN: Benign. EXTREMITIES: No clubbing, cyanosis, or edema. NEUROLOGIC: Seems intact. LABORATORY DATA: Her white count is 8.4, H&H of 10 and 31 and platelet count is noted to be 286. Her sodium is 140, potassium 4.4, BUN and creatinine of 26 and 1.1 and blood sugar was noted to be 197. ASSESSMENT: This is a 77-year-old female patient admitted to the rehab with a working diagnosis of spinal cord dysfunction. The patient has potential to make improvement. We instituted the following multidisciplinary therapies including, but not limited to physical, occupational, respiratory, speech, nutritional services, prosthetics and orthotics. Given her complex condition and risk for more complications, rehabilitation services cannot be provided at a low level of care such as a snf facility. PLAN: 1. Admit to [facility] rehab for intensive inpatient therapy to include the following disciplines: A. Physical therapy to improve gait, all transfer skills and bed mobility to a modified independent level. B. Occupational therapy to improve activities of daily living to a modified independent level. C. Case management to assist with discharge planning and placement options. D. Nutrition to assist in nutritional needs. E. Rehabilitation nursing to assist in monitoring the patient's underlying medical conditions and to assist with any type of bowel or bladder management. 2. The patient's current medications and medical care will be continued. 3. The patient will be placed on standard fall precautions. 4. We will monitor blood pressure closely. 5. We will also monitor blood sugar secondary to elevation, secondary to her tapering dose of steroids. 6. We will discuss this patient during care team staff meeting this week. TRANSINT:[id number] Voice Confirmation ID: [id number] DOCUMENT ID: [id number] CHRISTINE notes whether there has been none or any medical/functional change since admission: - Some epigastric pain, relieved by Mylanta that delayed transfer. CHRISTINE attests patient continues to be appropriate for IRF: - Continues to be appropriate. HISTORY AND PHYSICAL [id number] SIRISHA ZHAO SCOTT MD at 1652 CC: [id number] DICTATION DATE: 07/07/17916 WALL WORKER: 07/07/17 1039 ADM IN [id number] [place] [address]
--- NOTE | 2017-07-09 19:48 | NUR ---
SIT UP IN CHAIR AND WATCH TV.
--- NOTE | 2017-07-10 02:10 | NUR ---
CONTINUES IN BED, EYES CLOSED. NO DISTRESS NOTED.
[2017-07-10 02:49] VITALS: BP 161/67
[2017-07-10 09:06] VITALS: BP 183/69
--- NOTE | 2017-07-10 20:06 | NUR ---
SIT UP IN WHEELCHAIR AND WATCH TV.
--- NOTE | 2017-07-10 23:25 | NUR ---
CONTINUES IN BED, EYES CLOSED. RESTING QUIETLY.
[2017-07-11 00:07] VITALS: BP 136/69
--- NOTE | 2017-07-11 01:44 | NUR ---
LAYING ON RIGHT SIDE,EYE CLOSE, BED LOW, CALL LIGHT IN REACH.
--- NOTE | 2017-07-11 07:29 | NUR ---
Lying in bed on right side eyes closed resting. Appropriate rise and fall of chest. No s/sx of distress. call light and personal items within reach, bed alarm on, sr x2, bed low. will continue to monitor
[2017-07-11 08:09] VITALS: BP 219/73
--- NOTE | 2017-07-11 13:40 | NUR ---
SITTING UP IN W/C LOOKING AT TV. DENIES ANY NEEDS OR PAIN. CALL LIGHT WITHIN REACH, W/C BRAKES ON. WILL CONTINUE TO MONITOR
[2017-07-11 14:53] VITALS: BP 134/82
--- NOTE | 2017-07-11 17:52 | NUR ---
LYING IN BED ON RIGHT SIDE EYES CLOSED RESTING. APPROPRIATE RISE AND FALL OF CHEST. NO S/SX OF RESPIRATORY DISTRESS. CALL LIGHT WITHIN REACH, BED LOW, WALKER WITHIN REACH. WILL CONTINUE TO MONITOR
[2017-07-11 19:00] VITALS: BP 152/72
--- NOTE | 2017-07-11 19:35 | NUR ---
PT UP IN WC. NO O2. NO IV. WALKER. FSBS ACHS. SOFT COLLAR PRN. UP ADLIB. CALL LIGHT WITHIN REACH.
--- NOTE | 2017-07-11 23:35 | NUR ---
PT IN BED WITH HOB UP FOR COMFORT. EYES CLOSED. CHEST RISING AND FALLING. BED IN LOWEST POSITION AND CALL LIGHT WITHIN REACH.
--- NOTE | 2017-07-12 00:35 | NUR ---
PATIENT GETTING UP TO BR AT PRESENT. HAS SIGNED BED ALARM WAIVER. NO COMPLAINTS AT THIS TIME.
--- NOTE | 2017-07-12 04:30 | NUR ---
PT LYING IN BED WITH HOB UP FOR COMFORT. EYES CLOSED. RESP. EVEN. BED IN LOWEST POSITION AND CALL LIGHT WITHIN REACH.
[2017-07-12 09:00] VITALS: BP 199/68
--- NOTE | 2017-07-12 13:43 | NUR ---
Nutrition Follow Up: Pt stated that her appetite is great. Pt is eating 83% meal avg on a diabetic diet. +BM 07/11/17. Labs and meds noted. Rec continue current diet. RD following.
--- NOTE | 2017-07-12 20:00 | NUR ---
PT UP IN BED WITH HOB UP FOR COMFORT. RESTING QUIETLY. RESPIRATIONS EVEN. NO O2. NO IV. WALKER. FSBS ACHS. SOFT COLLAR PRN. UP ADLIB. CALL LIGHT WITHIN REACH.
--- NOTE | 2017-07-12 20:02 | NUR ---
PT. IN BED WITH HOB UP FOR COMFORT LYING ON HER LEFT SIDE WITH EYES CLOSED AND RESP. DEEP AND EVEN. CALL LIGHT WITHIN REACH.
[2017-07-12 20:34] VITALS: BP 107/62
--- NOTE | 2017-07-13 | NUR ---
PT IN BED WITH HOB UP FOR COMFORT. EYES CLOSED. CHEST RISING AND FALLING. BED IN LOWEST POSITION AND CALL LIGHT WITHIN REACH.
--- NOTE | 2017-07-13 04:00 | NUR ---
PT LYING IN BED WITH HOB UP FOR COMFORT. EYES CLOSED. RESP. EVEN. BED IN LOWEST POSITION AND CALL LIGHT WITHIN REACH.
[2017-07-13 08:25] VITALS: BP 157/78
--- NOTE | 2017-07-13 17:58 | NUR ---
SITTING UP EATING SUPPER. DENIES NEEDS. BED IN LOWEST POSITION.
--- NOTE | 2017-07-13 19:08 | NUR ---
RECIEVED LAYING IN BED WITH EYES CLOSED. N O S/S OF DISTRESS OBSERVED. CALL LIGHT AND OVERBED TABLE IN REACH.
--- NOTE | 2017-07-13 20:20 | NUR ---
RESTING IN BED WITH EYES OPEN. PLEASANT AND TALKATIVE. DENIES ANY PAIN. TAKES MEDICATION WITHOUT DIFFICULTY. CALL LIGHT AND OVERBED TABLE IN REACH.
[2017-07-13 21:45] VITALS: BP 173/70
--- NOTE | 2017-07-13 22:18 | NUR ---
RESTING IN BED WITH EYES CLOSED. NO S/S OF DISTRESS OBSERVED. CALL LIGHT AND OVERBED TABLE IN REACH.
--- NOTE | 2017-07-14 00:48 | NUR ---
RESTING IN BED WITH EYES CLOSED. NO S/S OF DISTRESSOBSERVED. CALL LIGHT AND OVERBED TABLE IN REACH.
--- NOTE | 2017-07-14 04:02 | NUR ---
RESTING IN BED WITH EYES CLOSED. NO S/S OF DISTRESS OBSERVED. LAYING ON HER LEFT SIDE. CALL LIGHT AND OVERBED TABLE IN REACH.
[2017-07-14 06:11] LABS: BASOPHILS 0.2 % (0-2); EOSINOPHILS 1.5 % (0-7); HEMATOCRIT 30.9 % (36.0-48.0); IMMATURE GRANULOCYTES 0.5 % (0-5); LYMPHOCYTES 15.2 % (15-50); MCH 27.2 pg (26.0-34.0); MCHC 32.4 g/dL (31.0-37.0); MEAN PLATELET VOLUME 11.6 fL (7.4-10.4); MONOCYTES 12.9 % (2-11); NEUTROPHILS 69.7 % (40-80); PLATELET COUNT 330 10x3/uL (130-400); RBC 3.68 10x6/uL (4.00-5.40); RDW 15.6 % (11.5-14.5); WBC 9.6 10x3/uL (4.8-10.8)
[2017-07-14 06:39] LABS: ANION GAP 13.3 mmol/L (8-16); CALCIUM 8.9 mg/dL (8.5-10.1); CARBON DIOXIDE 24.4 mmol/L (21.0-32.0); CREATININE - SERUM 1.1 mg/dL (0.6-1.3); POTASSIUM - SERUM 4.7 mmol/L (3.5-5.1)
--- NOTE | 2017-07-14 08:00 | NUR ---
SHIFT ASSMT COMPLETED.UP OOB WITH RW TO BATHROOM INDEPENDENTLY.BREAKFAST GIVEN.
[2017-07-14 08:21] VITALS: BP 149/71
--- NOTE | 2017-07-14 12:00 | NUR ---
SITTING UP IN CHAIR EATING LUNCH.
--- NOTE | 2017-07-14 17:23 | NUR ---
CARE TEAM MEETING: PATIENT PROGRESSING WELL IN THERAPY AND WILL DISCHARGE HOME ON 07/16/17. WILL CONTINUE TO FOLLOW WITH PATIENT AND WILL ASSIST WITH DISCHARGE NEEDS.
--- NOTE | 2017-07-14 19:14 | NUR ---
RESTING IN BED WITH EYES CLOSED. NO S/S OF DISTRESS OBSERVED. CALL LIGHT AND OVERBED TABLE IN REACH.
[2017-07-14 19:17] VITALS: BP 157/68
--- NOTE | 2017-07-14 20:24 | NUR ---
RESTING IN BED WITH EYES CLOSED. EASILY AROUSES WITH VERBAL STIMULI. TAKES MEDICATION WITHOUT DIFFICULTY. BLOOD SUGAR MONITORED AND TREATED PER MD ORDERS. CALL LIGHT AND OVERBED TABLE IN REACH,
--- NOTE | 2017-07-14 22:29 | NUR ---
RESTING IN BED WITH EYES CLOSED AT THIS TIME.
[2017-07-15 07:54] VITALS: BP 196/70
--- NOTE | 2017-07-15 08:01 | NUR ---
RESTING QUIETLY IN BED. CALL LIGHT IN REACH. BED IN LOWEST POSITION.
[2017-07-15] MEDS ORDERED: HYDROCODON-ACE1 EAC7 PO (08:37)
[2017-07-15] MEDS ORDERED: NORVASC10 MG PO (08:37)
[2017-07-15] MEDS ORDERED: GLUCOPHAGE500 MG PO (08:38)
--- NOTE | 2017-07-15 15:12 | NUR ---
PATIENT DISCHARGING HOME ON 07/16/17. PATIENT HAS DECLINED HOME HEALTH AND ANY DME NEEDS AT THIS TIME. DR. BOJORQUEZ 07/22/17 @ 9:30, DR. PEDRO 08/09/19 @ 2:00. PATIENT HAS SIGNED [facility] FORM AND IS FILED IN CHART.WILL CONTINUE TO FOLLOW WITH PATIENT UNTIL DISCHARGED
[2017-07-15 19:30] VITALS: BP 179/62
--- NOTE | 2017-07-15 19:30 | NUR ---
PT IN WC. WATCHING TV. NO O2. NO IV. FSBS ACHS. CONTINENT. WALKER. UP ADLIB. CALL LIGHT WITHIN REACH.
--- NOTE | 2017-07-15 23:30 | NUR ---
PT LYING IN BED. EYES CLOSED. CHEST RISING AND FALLING. BED IN LOWEST POSITION AND CALL LIGHT WITHIN REACH.
--- NOTE | 2017-07-16 03:30 | NUR ---
PT IN BED WITH HOB UP FOR COMFORT. EYES CLOSED. CHEST RISING AND FALLING. BED IN LOWEST POSITION AND CALL LIGHT WITHIN REACH.
--- NOTE | 2017-07-16 04:45 | NUR ---
RESTING IN BED, EYES CLOSED. NO DISTRESS EVIDENT.
--- NOTE | 2017-07-16 06:32 | NUR ---
PT LYING IN BED WITH HOB UP FOR COMFORT. EYES CLOSED. RESP. EVEN. BED IN LOWEST POSITION AND CALL LIGHT WITHIN REACH.
--- NOTE | 2017-07-16 08:11 | NUR ---
SITTING UP IN BED EATING BREAKFAST. DENIES PAIN OR NEEDS. CALL LIGHT IN REACH
[2017-07-16 08:55] VITALS: BP 202/72
--- NOTE | 2017-07-16 11:45 | NUR ---
USES WALKER TO AMBULATE TO BATHROOM. DENIES PAIN OR SOB.
--- NOTE | 2017-07-16 14:14 | NUR ---
WATCHING TV IN ROOM. DENIES NEEDS. BED IN LOWEST POSITION.
--- NOTE | 2017-07-16 16:04 | NUR ---
WENT OVER D/C PAPERWORK WITH PT. SHE DENIES QUESTIONS. WAITING ON SON TO PICK HER UP.
--- NOTE | 2017-07-16 16:14 | NUR ---
MEDS CALLED INTO [facility] IN [place].
--- NOTE | 2017-07-16 16:35 | NUR ---
D/C OFF UNIT IN W/C. SHE HAD ALL PERSONAL BELONGINGS.
--- NOTE | 2017-09-29 13:18 | DS ---
PATIENT:SIRISHA ZHAO :42 MEDICAL RECORD: [id number] DISCHARGE SUMMARY ADMISSION DATE: 07/06/17 DISCHARGE DATE: 07/16/17 This is a discharge dated 07/16/2017 from the inpatient rehab. PRIMARY DIAGNOSIS: Decreased functional mobility and ability to provide activities of daily living status post anterior cervical diskectomy and fusion at C6-C7 and C7-T1. SECONDARY DIAGNOSES: 1. Cervical radiculopathy. 2. Spinal cord stenosis. 3. Hypertension. 4. Diabetes. 5. Anemia. HOSPITAL COURSE: Full H&P is located elsewhere on the chart on this 77-year-old female who was admitted to inpatient rehab for physical therapy and occupational therapy to improve gait, transfer skills, bed mobility, and activities of daily living to a modified independent level. She was evaluated by PT and OT and their plans of care were followed. She required penitentiary care for observation and assessment and medication administration. Fingerstick blood sugars were monitored throughout her hospital stay with appropriate adjustment in medications as needed. Labs were monitored, her H&H was stable. Electrolytes were managed by protocol. She was cooperative with therapies, progressing towards goals. She was able to walk at least 500 feet with a rolling walker. She was considered stable for discharge on 07/16/2017. DISCHARGE MEDICATIONS: As per discharge medication reconciliation. DISCHARGE DISPOSITION: The patient is discharged home. She will continue her current diet and level of activity. She will have home health for continued PT and OT and nursing to follow blood pressures. She will follow up with primary care, Dr. Middleton on 07/22/[address] Phillips, her neurosurgery on 08/09/2017. At least 30 minutes was spent in this discharge activity. TRANSINT:[id number] Voice Confirmation ID: [id number] DOCUMENT ID: [id number] Dictated By: RADHA JOHNSON I have interviewed/examined the above patient and agree with these documented findings. SHILA BURGOS MD at 1318 at 0939 CC: [id number] DICTATION DATE: 09/25/17 0934 CNC OPERATOR: 09/25/17 1351 DIS IN 07/16/17 [id number] [place] [address]
== END 2017-07-16 14:30 | disposition home or self-care (01) | DRG 74 ==
LOC: D.REHAB 15:17
PROVIDERS: ADMIT Emergency Medicine
DX: M54.12 Radiculopathy, cervical region (principal); I10 Essential (primary) hypertension; E11.9 Type 2 diabetes mellitus without complications; M48.02 Spinal stenosis, cervical region; M43.22 Fusion of spine, cervical region; M25.519 Pain in unspecified shoulder; M50.30 Other cervical disc degeneration, unspecified cervical region

== ENCOUNTER 2017-10-24 07:15 | Inpatient (IN) | payer MEDICARE, OTHER ==
[~2017-10-24] VITALS: Ht 157.5 cm; Wt 99.2 kg
--- NOTE | ~2017-10-24 | DS ---
PATIENT:SIRISHA ZHAO :42 MEDICAL RECORD: [id number] DISCHARGE SUMMARY ADMISSION DATE: 10/24/17 DISCHARGE DATE: 11/18/17 DISCHARGE/TRANSFER SUMMARY DATE OF ADMISSION: 10/28/2017. DATE OF TRANSFER: 11/18/2017. ADMISSION DIAGNOSES: Bibasilar pneumonia, gastrointestinal bleed, hypoxemia. DISCHARGE DIAGNOSES: Bibasilar pneumonia, gastrointestinal bleed, renal failure, anasarca, pulmonary hypertension, aspiration pneumonia, [id number] diastolic congestive heart failure, severe pulmonary hypertension, and atrial fibrillation with rapid ventricular response, resolved with a Cardizem drip. CONSULTS: Pulmonology, GI, nephrology, and cardiology. HOSPITAL COURSE: The patient had very protracted involved hospital course and developed ARDS, was transferred to the unit. He gradually stabilized and was able to be transferred back to the floor. Hypertension remained refractory, he is on multiple medications. Difficulty to diurese. With patient's multiple comorbidities and no significant improvement in symptoms and after consultation with specialists discussed hospice with family. Family initially agreed with hospice. Hospice was contacted. New family members involved and decision was back and forth. Now family would like to transfer to [facility] for fresh look and additional treatment. Discussed case with Dr. Burch at [facility], agreed with transfer. The patient transferred to [facility] in stable guarded condition. Please see chart for details of this long and protracted case including all imaging, echocardiograms. Will continue IV medications en route and further decisions to be made at [facility]. TRANSINT:[id number] Voice Confirmation ID: [id number] DOCUMENT ID: [id number] JALEN BOJORQUEZ DO at 0836 CC: [id number] DICTATION DATE: 11/18/17 0815 LABEL MAKER: 11/18/17 1142 DIS IN 11/18/17 [id number] [place] [address]
--- NOTE | ~2017-10-24 | EC ---
PATIENT:SIRISHA ZHAO DATE OF SERVICE: 10/24/17 SEX: F MEDICAL RECORD: [id number] DATE OF : 42 [facility] AGE OF PATIENT: 77 ADMISSION DATE: 10/24/17 REFERRING PHYSICIAN: INTERPRETING PHYSICIAN: MIGUEL MCGOVERN MD ECHOCARDIOGRAM REPORT ECHO CHARGES 4 ECHO COMPLETE CLINICAL DIAGNOSIS: CHF ECHOCARDIOGRAPHIC MEASUREMENTS (adult normal given) AC root (d.<3.7cm) 2.8 cm LV Septum d (<1.2 cm> 1.9 cm Valve Excursion 1.4 cm LV Septum (systole) 2.0 cm Left Atria (s.<4.0cm> 4.0 cm LVPW d(<1.2cm) 1.8 cm RV (d.<2.3cm) 3.4 cm LVPW (sytole) 2.0 cm LV diastole(<5.6CM) 5.7 cm MV E-F(>70mm/sec) cm LV systole 2.6 cm LVOT Diameter 1.9 cm MV exc.(>10mm) 1.4 cm Est.ejection fraction (50-75%) % Pericardial Effusion N DOPPLER: LVIT cm/sec A cm/sec E cm/sec LA cm/sec RVSP 64 mmHg LVOT 122 cm/sec AOP1/2T m/s Asc. Ao 177 cm/sec RVOT 96 cm/sec RA cm/sec PA 149 cm/sec AV Gradient Peak 12.53mmHg AV Mean 6.05 mmHg AV Area 21.2 cm MV Gradient Peak 8.82 mmHg MV Mean 3.14 mmHg MV Area cm COMMENTS: Business Resiliency Manager: Bella CROW Change Control Analyst: 3 Dr. Renee TAPE# PACS DATE OF SERVICE: 10/28/2017 Adequate 2D echo, color flow, spectral Doppler, and M-mode. LVH is present. LV internal dimension is normal. Wall motion is normal. EF is greater than or equal to 55%. Aortic valve is tricuspid. No evidence of stenosis by Doppler interrogation. The left atrium is upper limits of normal 4.0 cm. Mitral valve shows no prolapse. Mild MR. Right-sided chamber size is grossly normal. Mild TR. TRANSINT:[id number] Voice Confirmation ID: [id number] DOCUMENT ID: [id number] ECHOCARDIOGRAM REPORT [id number] ZHAO,SIRISHA JEANINE MIGUEL MCGOVERN MD at 1347 CC: [id number] DICTATION DATE: 10/28/17 1351 ALMOND CUTTING MACHINE TENDER: 10/28/17 1404 ADM IN [place] [id number] [place] [id number]
--- NOTE | ~2017-10-24 | HEMODYNAMI ---
PATIENT:SIRISHA ZHAO MEDICAL RECORD: [id number] : 42 LOCATION:[facility] D.2305 ADMISSION DATE: 10/24/17 Generatedon:10/28/201714:48 Patient name: SIRISHA ZHAO Patient #: [id number] SSN: : 1940 Date of study: 10/28/2017 Page: Of Hemodynamic Procedure Report Patient Data Patient Demographics Procedure consent was obtained First Name: SIRISHA Gender: Female Last Name: CECE : 1940 [facility] Initial: JEANINE Age: 77 year(s) Patient #: [id number] Race: Black Additional ID: [id number] Contact details Address: [address] [place] [address] State: [place] City: [place] Zip code: [address] Past Medical History Allergies: No known allergies Admission Admission Data Admission Date: 10/24/2017 Admission Time: 8:43 Room #: D2305 Weight (lbs.): 176 Weight (kg.): 79.83 Procedure Procedure Types Cath Procedure Peripheral Cath Diagnostic Procedure Cath Peripheral Venography IVC/SVC Inferior Venacava Filter Procedure Description Procedure Date Procedure Date: 10/28/2017 Procedure Start Time: 14:27 Procedure Staff Name Function Kostas Ford MD Performing Physician Hannah Chavez RT Monitor Kulwinder Gill RT Scrub Eneida Lackey RN Nurse Hannah Chavez RT Deputy Prosecuting Attorney Procedure Data Cath Procedure Fluoroscopy Diagnostic fluoroscopy Total fluoroscopy Time: 1 time: 1 min min Diagnostic fluoroscopy Total fluoroscopy dose: 177 dose: 177 mGy mGy Contrast Material Contrast Material Type Amount (ml) Isovue 300 30 Hemodynamics Rest Snapshots Pre Cath Intra NCS Post Cath Vital Signs Time Heart Resp SPO2 etCO2 NIBP (mmHg) Rhythm Pain Sedation Rate (ipm) (%) (mmHg) Status Level (bpm) 14:02:17 86 0 174/82(131) NSR 0 (11) 10(A) , No pain 14:06:45 101 50 91 172/79(128) NSR 0 (11) 10(A) , No pain 14:11:07 98 47 88 14 169/84(118) NSR 0 (11) 10(A) , No pain 14:16:07 99 51 90 14 Measuring NSR 0 (11) 10(A) , No pain 14:16:25 96 53 91 15 174/86(139) NSR 0 (11) 10(A) , No pain 14:20:53 100 49 92 14 177/82(134) NSR 0 (11) 10(A) , No pain 14:25:20 99 50 96 14 176/86(133) NSR 0 (11) 10(A) , No pain 14:29:42 97 55 94 14 175/87(128) NSR 0 (11) 10(A) , No pain 14:34:06 93 50 96 13 179/88(143) NSR 0 (11) 10(A) , No pain 14:38:32 99 47 95 14 180/85(127) NSR 0 (11) 10(A) , No pain 14:43:03 99 60 70 174/87(139) NSR 0 (11) 10(A) , No pain 14:46:54 100 19 94 No Cuff NSR 0 (11) 10(A) , No pain Procedure Log Time Note 13:32:58 Patient Weight : 176 lbs 13:33:29 Use device set IR Diagnostic 14:00:59 Vital chart was started 14:01:30 Time tracking: Regular hours 14:01:36 Plan of Care:Hemodynamics will remain stable., Cardiac rhythm will remain stable., Comfort level will be maintained., Respiratory function will remain adequate., Patient/ family verbilizes understanding of procedure., Procedure tolerated without complication., Recovers from procedure without complications.. 14:01:45 Patient received from ICU to IR Alert and oriented. Tansferred to table in Supine position. 14:01:50 Signed procedure consent form obtained from guardian. 14:01:54 Baseline sample Acquired. 14:01:55 Full Disclosure recording started 14:01:59 - 14:02:04 H&P Date Dictated: 10/28/2017 Within 30 days and on chart.. 14:02:10 Family unavailable. 14:02:15 Patient NPO since Midnight. 14:02:26 Patient allergic to No known allergies 14:03:16 unable to obtain pre sedation answers 14:03:19 - 14:03:46 - 14:03:52 KSKTSON 145cm wire (G90979) opened to sterile field. 14:03:53 Sterile Angiographic Pack opened to sterile field. 14:03:54 Bag Decanter (2002) opened to sterile field. 14:03:54 ACIST Manifold (29503) opened to sterile field. 14:03:55 ACIST Hand Control (30695) opened to sterile field. 14:03:56 ACIST Syringe (15784) opened to sterile field. 14:04:05 - 14:15:38 Micropuncture VSI 4FR kit opened to sterile field. 14:23:02 Physician arrived 14:24:28 --------ALL STOP TIME OUT------ 14:24:30 Final Timeout: patient, procedure, and site verified with staff and physician. All members of the team are in agreement. 14:25:48 Sedation plan: IV Moderate Sedation Medication:Versed, Fentanyl 14:27:01 Procedure started. 14:27:24 Local anesthetic to right femoral vein with Lidocaine 1% by Kostas Ford MD.INITIAL ACCESS ONLY 14:27:27 Venous access obtained using ultrasound guidance. 14:28:09 FILTER Alyssa Vena Cava (BO136W) opened to sterile field. 14:28:39 Venogram performed 14:33:10 Garden Femoral IVC filter was placed below renal veins. 14:35:06 Procedure ended.(Physican Out) 14:35:21 Fluoroscopy time 01.00 minutes. 14:35:32 Flurop Dose total: 177 14:35:32 Fluoroscopy dose: 177 mGy 14:36:12 Contrast amount:Isovue 300 30ml. 14:38:32 Procedure and supply charges have been captured, reviewed, submitted an d are correct. 14:38:37 Report given to ICU. 14:48:36 Vital chart was stopped Device Usage Item Name Manufacture Quantity Catalog Hospital Part Current Minima l Lot# / Number Charge Number Stock Stock Serial# Code TONA 145cm [employer] 1 [id number] 5 [id number] wire ([id number]) Sterile Cardinal 1 [id number] 570232 538678 5 Angiographic Health Pack Bag Decanter Microtek 1 2002S 563832 94657 [id number] 5 (2001S) Medical Inc. ACIST Acist 1 99954 609224 386966 220137 5 Manifold Medical (82461) Systems Inc ACIST Hand Acist 1 88551 566735 680881 117575 5 Control Medical (62417) Systems Inc ACIST Syringe Acist 1 36171 193813 941069 901189 20 (30763) Medical Systems Inc FILTER Alyssa Bard 1 [id number] 572228 158511 618867 5 [id number] Vena Cava ([id number]) Micropuncture VSI VASCULAR 1 7266V 690866 411587 5 VSI 4FR kit SOLUTIONS Signature Audit [place] Stage Time Signature Unsigned Intra-Procedure 10/28/2017 Hannah Chavez 2:48:33 PM RT(R) Signatures Monitor : Hannah Chavez RT Signature : Date : Time : [facility] [address] [place] [address]
--- NOTE | ~2017-10-24 | CN ---
PATIENT NAME:SIRISHA ZHAO MEDICAL RECORD: [id number] : 42 LOCATION:[facility].2305 ADMIT DATE: 10/24/17 ACCOUNT: [id number] CONSULTING PHYSICIAN: MIGUEL MCGOVERN MD REFERRING PHYSICIAN: JALEN BOJORQUEZ DO DATE OF CONSULTATION: 10/28/2017 HISTORY OF PRESENT ILLNESS: This is a 77-year-old female, typically healthy, has a history of hypertension and dyslipidemia, admitted with multilobar pneumonia, anemia, probable component of high output failure with elevated BNP. She reports feeling somewhat better now. She has a history of diastolic dysfunction previously. LV systolic function well preserved. We were asked to see her concerning cardiovascular status. PAST MEDICAL HISTORY: Includes, 1. History of hypertension. 2. Hyperlipidemia. 3. Diabetes mellitus. ALLERGIES: None known. MEDICATIONS: Typically include, Glucotrol 5 mg p.o. b.i.d., omeprazole 40 mg day, Bumex 1 every day, aspirin 325 every day, simvastatin 10 q.h.s., hydralazine 100 t.i.d., amlodipine 10 every day, losartan 100 every day, clonidine 0.2 t.i.d. SOCIAL HISTORY: She is a nonsmoker, nondrinker. Typically takes care of all ADLs, states quite active. REVIEW OF SYSTEMS: The patient reports easy bruising but reports no swollen glands. The patient reports no fever, no night sweats, no significant weight gain, no significant weight loss. No significant exercise tolerance. The patient reports no dry eyes, no irritation, no vision change. Patient reports no difficulty hearing and no ear pain. Patient reports no frequent nose bleeds or nose and sinus problems. Patient reports on arm pain on exertion. No shortness of breath while lying down. No history of heart murmur. Patient reports no cough, no wheezing or coughing up blood. Patient reports no abdominal pain, no vomiting. Normal appetite. No diarrhea and not vomiting blood. No nausea and no constipation. Patient reports no incontinence. No difficulty urinating. No hematuria. No increased frequency. Patient reports no muscle aches. No weakness, no arthralgias, no back pain. No swelling of the extremities. Patient reports no abnormal mole, no jaundice, no rashes. Reports no loss of consciousness. No weakness and no numbness. No seizures, dizziness, or headaches. The patient reports no depression, no sleep disturbance, feeling safe in a relationship and no alcohol abuse. Patient reports on fatigue. Reports no runny nose or sinus pressure. No itching, no hives, and no frequent sneezing. PHYSICAL EXAMINATION: GENERAL: Pleasant female, in mild respiratory distress. VITAL SIGNS: Blood pressure 163/77, pulse 87 and regular. HEENT: Normocephalic, atraumatic. NECK: No bruits noted. CARDIAC: Heart has active precordium with an S4 gallop. LUNGS: Inspiratory and expiratory wheezes, fair air movement. CONSULT REPORT [id number] SIRISHA ZHAO ABDOMEN: Soft, nontender. EXTREMITIES: Pulse 2+. No edema. NEUROLOGIC: Grossly intact. IMPRESSION AND PLAN: Elkqo-[id number]-[id number] diastolic dysfunction. Restart all of her antihypertensives. Recheck echocardiographic study. Further recommendations based on clinical course. Thank you for the consultation. TRANSINT:[id number] Voice Confirmation ID: [id number] DOCUMENT ID: [id number] MIUGEL MCGOVERN MD at 1347 CC: [id number] DICTATION DATE: 10/28/17 0844 CUSTOM APPLICATOR: 10/28/17 1029 ADM IN [place] [id number] [place] [address]
[~2017-10-24 07:15] MED LIST changes: +GLUCOPHAGE500 MG PO; +NORVASC10 MG PO
[2017-10-24 07:57] LABS: BASOPHILS 0.1 % (0-2); EOSINOPHILS 0.8 % (0-7); HEMATOCRIT 24.1 % (36.0-48.0); IMMATURE GRANULOCYTES 0.3 % (0-5); MCH 25.9 pg (26.0-34.0); MCHC 33.2 g/dL (31.0-37.0); MONOCYTES 8.8 % (2-11); PLATELET COUNT 343 10x3/uL (130-400); RBC 3.09 10x6/uL (4.00-5.40); RDW 15.5 % (11.5-14.5); WBC 8.7 10x3/uL (4.8-10.8)
[2017-10-24 08:11] LABS: ALBUMIN 3.1 g/dL (3.4-5.0); ANION GAP 13.2 mmol/L (8-16); BILIRUBIN - TOTAL 0.64 mg/dL (0.2-1.3); CALCIUM 8.4 mg/dL (8.5-10.1); CARBON DIOXIDE 25.6 mmol/L (21.0-32.0); CREATININE - SERUM 1.5 mg/dL (0.6-1.3); POTASSIUM - SERUM 3.8 mmol/L (3.5-5.1); PROTEIN - SERUM 6.7 g/dL (6.4-8.2)
[2017-10-24 08:18] LABS: TROPONIN-I 0.021 ng/mL (0.000-0.060)
[2017-10-24 08:25] LABS: APPEARANCE CLEAR (CLEAR); BILIRUBIN NEGATIVE (NEGATIVE); COLOR YELLOW (YELLOW); GLUCOSE NEGATIVE (NEGATIVE); KETONE NEGATIVE (NEGATIVE); NITRITE NEGATIVE (NEGATIVE); PROTEIN 2+ mg/dL (NEGATIVE); UROBILINOGEN NORMAL (NORMAL)
[2017-10-24 08:27] LABS: BACTERIA FEW /hpf (NONE SEEN); EPITHELIAL CELLS 0-5 /hpf (0-5); RED CELLS - URINE 0-5 /hpf (0-5); WHITE CELLS - URINE NSEEN /hpf (0-5)
[2017-10-24] MEDS ORDERED: HYDRALAZINE HC100 MG PO (10:59)
[2017-10-24] MEDS ORDERED: GLUCOTROL 5 MG T5 MG PO (11:01)
[2017-10-24] MEDS ORDERED: OMEPRAZOLE40 MG PO (11:05)
[2017-10-24] MEDS ORDERED: ZOCOR20 MG PO (11:07)
[2017-10-24] MEDS ORDERED: BUMEX 1 MG TAB1 MG PO (11:08)
[2017-10-24] MEDS ORDERED: VITAMIN D250000 UNIT PO (11:08)
[2017-10-24] MEDS ORDERED: ZANAFLEX4 MG PO (11:09)
[2017-10-24] MEDS ORDERED: ASPIRIN325 MG PO (11:09)
[2017-10-24] MEDS ORDERED: METAMUCIL FIB1 WAFER PO (11:10)
[2017-10-24] MEDS ORDERED: PROBIOTIC1 EAC1 PO (11:23)
[2017-10-24 11:29] VITALS: BP 211/77; BMI 33.0
[2017-10-24 14:49] VITALS: BP 184/82
[2017-10-24 20:30] VITALS: BP 200/89
[2017-10-24 23:34] LABS: HEMATOCRIT 29.8 % (36.0-48.0); HEMOGLOBIN 10.1 g/dL (12-16)
[2017-10-25 00:30] VITALS: BP 180/82
[2017-10-25 04:00] VITALS: BP 186/64
[2017-10-25 04:46] LABS: BASOPHILS 0.1 % (0-2); EOSINOPHILS 0.1 % (0-7); IMMATURE GRANULOCYTES 0.3 % (0-5); LYMPHOCYTES 5.5 % (15-50); MCH 26.7 pg (26.0-34.0); MCHC 33.3 g/dL (31.0-37.0); MEAN PLATELET VOLUME 11.7 fL (7.4-10.4); PLATELET COUNT 399 10x3/uL (130-400)
[2017-10-25 04:48] LABS: MCV 80.2 fL (80.0-100.0); RBC 3.74 10x6/uL (4.00-5.40); WBC 13.2 10x3/uL (4.8-10.8)
[2017-10-25 05:02] LABS: ANION GAP 12.4 mmol/L (8-16); CALCIUM 8.3 mg/dL (8.5-10.1); CARBON DIOXIDE 27.3 mmol/L (21.0-32.0); CREATININE - SERUM 1.3 mg/dL (0.6-1.3); POTASSIUM - SERUM 3.7 mmol/L (3.5-5.1)
[2017-10-25 07:50] VITALS: BP 190/88
[2017-10-25 11:47] VITALS: BP 165/72
[2017-10-25 12:29] VITALS: BMI 32.9
[2017-10-25 17:36] LABS: HEMATOCRIT 27.3 % (36.0-48.0); HEMOGLOBIN 9.2 g/dL (12-16)
[2017-10-25 19:00] VITALS: BP 187/80
[2017-10-26 04:00] VITALS: BP 172/70
[2017-10-26 04:14] LABS: BASOPHILS 0.1 % (0-2); EOSINOPHILS 0.3 % (0-7); HEMATOCRIT 26.3 % (36.0-48.0); HEMOGLOBIN 8.6 g/dL (12-16); IMMATURE GRANULOCYTES 0.4 % (0-5); LYMPHOCYTES 9.6 % (15-50); MCH 26.5 pg (26.0-34.0); MCHC 32.7 g/dL (31.0-37.0); MCV 80.9 fL (80.0-100.0); MEAN PLATELET VOLUME 11.2 fL (7.4-10.4); NEUTROPHILS 77.6 % (40-80); PLATELET COUNT 403 10x3/uL (130-400); RBC 3.25 10x6/uL (4.00-5.40); RDW 15.4 % (11.5-14.5); WBC 11.7 10x3/uL (4.8-10.8)
[2017-10-26 04:37] LABS: ALBUMIN 2.9 g/dL (3.4-5.0); ANION GAP 11.8 mmol/L (8-16); BILIRUBIN - TOTAL 0.62 mg/dL (0.2-1.3); CALCIUM 8.2 mg/dL (8.5-10.1); CARBON DIOXIDE 26.9 mmol/L (21.0-32.0); CREATININE - SERUM 1.6 mg/dL (0.6-1.3); MAGNESIUM - SERUM 1.7 mg/dL (1.8-2.4); POTASSIUM - SERUM 3.7 mmol/L (3.5-5.1); PROTEIN - SERUM 6.5 g/dL (6.4-8.2)
[2017-10-26 08:02] VITALS: BP 142/81
[2017-10-26 21:47] VITALS: BP 218/93
[2017-10-27] VITALS (30 sets, daily range): BP systolic 144–216; BP diastolic 68–99
[2017-10-27 07:30] LABS: BASOPHILS 0.1 % (0-2); EOSINOPHILS 0.2 % (0-7); IMMATURE GRANULOCYTES 0.7 % (0-5); LYMPHOCYTES 4.9 % (15-50); MCH 27.7 pg (26.0-34.0); MCHC 33.8 g/dL (31.0-37.0); MCV 81.7 fL (80.0-100.0); MONOCYTES 10.1 % (2-11); PLATELET COUNT 335 10x3/uL (130-400); RDW 14.7 % (11.5-14.5); WBC 13.3 10x3/uL (4.8-10.8)
[2017-10-27 07:51] LABS: HEMATOCRIT 33.1 % (36.0-48.0); HEMOGLOBIN 11.2 g/dL (12-16); RBC 4.05 10x6/uL (4.00-5.40)
[2017-10-27 08:04] LABS: ANION GAP 14.3 mmol/L (8-16); BILIRUBIN - TOTAL 0.87 mg/dL (0.2-1.3); CALCIUM 8.4 mg/dL (8.5-10.1); CARBON DIOXIDE 26.4 mmol/L (21.0-32.0); CREATININE - SERUM 1.7 mg/dL (0.6-1.3); POTASSIUM - SERUM 3.7 mmol/L (3.5-5.1); PROTEIN - SERUM 6.3 g/dL (6.4-8.2)
[2017-10-27 08:50] LABS: INR 1.32 (0.85-1.17); PROTIME 15.9 SECONDS (11.6-15.0)
[2017-10-28] VITALS (32 sets, daily range): BP systolic 135–187; BP diastolic 63–127
[2017-10-28 03:49] LABS: BASOPHILS 0.1 % (0-2); EOSINOPHILS 0.4 % (0-7); HEMATOCRIT 28.2 % (36.0-48.0); HEMOGLOBIN 9.5 g/dL (12-16); IMMATURE GRANULOCYTES 0.5 % (0-5); LYMPHOCYTES 6.1 % (15-50); MCH 27.5 pg (26.0-34.0); MCHC 33.7 g/dL (31.0-37.0); MCV 81.7 fL (80.0-100.0); MEAN PLATELET VOLUME 11.2 fL (7.4-10.4); MONOCYTES 8.3 % (2-11); NEUTROPHILS 84.6 % (40-80); PLATELET COUNT 396 10x3/uL (130-400); RBC 3.45 10x6/uL (4.00-5.40); RDW 14.9 % (11.5-14.5)
[2017-10-28 03:59] LABS: APTT 66.2 SECONDS (22.8-39.4); INR 1.48 (0.85-1.17); PROTIME 17.4 SECONDS (11.6-15.0)
[2017-10-28 04:26] LABS: ALBUMIN 2.5 g/dL (3.4-5.0); ANION GAP 10.5 mmol/L (8-16); BILIRUBIN - TOTAL 0.99 mg/dL (0.2-1.3); CALCIUM 8.4 mg/dL (8.5-10.1); CARBON DIOXIDE 26.9 mmol/L (21.0-32.0); CREATININE - SERUM 1.7 mg/dL (0.6-1.3); MAGNESIUM - SERUM 1.9 mg/dL (1.8-2.4); PHOSPHOROUS 3.2 mg/dL (2.5-4.9); POTASSIUM - SERUM 3.4 mmol/L (3.5-5.1); PROTEIN - SERUM 6.3 g/dL (6.4-8.2); VANCOMYCIN - RANDOM 8.6 ug/mL (10.0-20.0)
[2017-10-28 04:27] LABS: TROPONIN-I 0.242 ng/mL (0.000-0.060)
[2017-10-28 05:11] LABS: ERYTHROCYTE SEDIMENTATION RATE 84 mm/hr (0-30)
[2017-10-29] VITALS (24 sets, daily range): BP systolic 124–154; BP diastolic 59–80
[2017-10-29 04:02] LABS: BASOPHILS 0.1 % (0-2); EOSINOPHILS 0 % (0-7); HEMATOCRIT 29.5 % (36.0-48.0); HEMOGLOBIN 9.9 g/dL (12-16); IMMATURE GRANULOCYTES 0.4 % (0-5); LYMPHOCYTES 7.3 % (15-50); MCH 27.5 pg (26.0-34.0); MCHC 33.6 g/dL (31.0-37.0); MCV 81.9 fL (80.0-100.0); MEAN PLATELET VOLUME 10.7 fL (7.4-10.4); MONOCYTES 1.8 % (2-11); NEUTROPHILS 90.4 % (40-80); PLATELET COUNT 406 10x3/uL (130-400); RDW 15.3 % (11.5-14.5); WBC 7.4 10x3/uL (4.8-10.8)
[2017-10-29 04:39] LABS: ALBUMIN 2.3 g/dL (3.4-5.0); BILIRUBIN - TOTAL 0.89 mg/dL (0.2-1.3); CALCIUM 8.2 mg/dL (8.5-10.1); CARBON DIOXIDE 25.7 mmol/L (21.0-32.0); PROTEIN - SERUM 6.5 g/dL (6.4-8.2)
[2017-10-29 04:41] LABS: ANION GAP 17.3 mmol/L (8-16); CREATININE - SERUM 2.4 mg/dL (0.6-1.3); TROPONIN-I 0.105 ng/mL (0.000-0.060)
[2017-10-29 10:19] LABS: ANA REFLEX - ANTICHROMATIN ABS >8.0 AI (0.0-0.9); ANA REFLEX - CENTROMERE B ABS <0.2 AI (0.0-0.9); ANA REFLEX - DBL STRANDED DNA 8 IU/mL (0-9); ANA REFLEX - DIRECT Positive (Negative); ANA REFLEX - JO-1 AB <0.2 AI (0.0-0.9); ANA REFLEX - RNP ANTIBODIES 0.8 AI (0.0-0.9); ANA REFLEX - SCL-70 <0.2 AI (0.0-0.9); ANA REFLEX - SJOGRENS AB SSA 0.5 AI (0.0-0.9); ANA REFLEX - SJOGRENS AB SSB <0.2 AI (0.0-0.9); ANA REFLEX - SMITH AB <0.2 AI (0.0-0.9)
[2017-10-29 13:10] LABS: HEMATOCRIT 28.6 % (36.0-48.0); HEMOGLOBIN 9.4 g/dL (12-16)
[2017-10-29 19:19] LABS: ERYTHROCYTE SEDIMENTATION RATE 80 mm/hr (0-30)
[2017-10-30] VITALS (24 sets, daily range): BP systolic 132–165; BP diastolic 61–90
[2017-10-30 01:36] LABS: HEMATOCRIT 27.9 % (36.0-48.0); HEMOGLOBIN 9.2 g/dL (12-16)
[2017-10-30 04:57] LABS: BASOPHILS 0 % (0-2); EOSINOPHILS 0 % (0-7); HEMATOCRIT 28.9 % (36.0-48.0); HEMOGLOBIN 9.6 g/dL (12-16); IMMATURE GRANULOCYTES 0.5 % (0-5); LYMPHOCYTES 2.7 % (15-50); MCH 27.1 pg (26.0-34.0); MCHC 33.2 g/dL (31.0-37.0); MCV 81.6 fL (80.0-100.0); MEAN PLATELET VOLUME 11.2 fL (7.4-10.4); MONOCYTES 7.2 % (2-11); NEUTROPHILS 89.6 % (40-80); PLATELET COUNT 409 10x3/uL (130-400); RBC 3.54 10x6/uL (4.00-5.40); RDW 15.2 % (11.5-14.5)
[2017-10-30 04:59] LABS: WBC 13.3 10x3/uL (4.8-10.8)
[2017-10-30 05:06] LABS: APTT 56.5 SECONDS (22.8-39.4); INR 1.42 (0.85-1.17); PROTIME 16.8 SECONDS (11.6-15.0)
[2017-10-30 05:13] LABS: ANION GAP 12.9 mmol/L (8-16); CALCIUM 8.1 mg/dL (8.5-10.1); CARBON DIOXIDE 26.8 mmol/L (21.0-32.0); CREATININE - SERUM 2.6 mg/dL (0.6-1.3); POTASSIUM - SERUM 3.7 mmol/L (3.5-5.1)
[2017-10-30 09:15] LABS: HEMOGLOBIN 10.4 g/dL (12-16)
[2017-10-30 16:19] LABS: HEMATOCRIT 29.6 % (36.0-48.0)
[2017-10-30 18:18] LABS: PRO/CRE RATIO URINE 1.3 mg/g; PROTEIN - URINE 77.8 mg/dL (0.0-11.9)
[2017-10-30 18:30] LABS: APPEARANCE HAZY (CLEAR); COLOR YELLOW (YELLOW); GLUCOSE NEGATIVE (NEGATIVE); KETONE NEGATIVE (NEGATIVE); NITRITE NEGATIVE (NEGATIVE); PROTEIN 1+ mg/dL (NEGATIVE); SPECIFIC GRAVITY 1.015 (1.005-1.020)
[2017-10-30 18:31] LABS: BILIRUBIN NEGATIVE (NEGATIVE); UROBILINOGEN NORMAL (NORMAL)
[2017-10-30 18:33] LABS: BACTERIA FEW /hpf (NONE SEEN); EPITHELIAL CELLS 0-5 /hpf (0-5); GRANULAR CAST 0-5 /lpf (NONE SEEN); HYALINE CAST 0-5 /lpf (NONE SEEN); RED CELLS - URINE 25-50 /hpf (0-5)
[2017-10-30 18:34] LABS: CALCIUM OXALATE CRYSTALS 0-5 /hpf (NONE SEEN)
[2017-10-31] VITALS (24 sets, daily range): BP systolic 122–191; BP diastolic 41–92
[2017-10-31 00:33] LABS: HEMATOCRIT 29.5 % (36.0-48.0); HEMOGLOBIN 9.8 g/dL (12-16)
[2017-10-31 05:08] LABS: BASOPHILS 0.1 % (0-2); EOSINOPHILS 0 % (0-7); HEMATOCRIT 30.3 % (36.0-48.0); IMMATURE GRANULOCYTES 0.5 % (0-5); MCH 26.7 pg (26.0-34.0); MCV 80.8 fL (80.0-100.0); MEAN PLATELET VOLUME 11.1 fL (7.4-10.4); MONOCYTES 4.8 % (2-11); NEUTROPHILS 91.6 % (40-80); PLATELET COUNT 449 10x3/uL (130-400); RBC 3.75 10x6/uL (4.00-5.40); WBC 16.3 10x3/uL (4.8-10.8)
[2017-10-31 05:30] LABS: ALBUMIN 2.3 g/dL (3.4-5.0); ANION GAP 12.6 mmol/L (8-16); BILIRUBIN - TOTAL 0.87 mg/dL (0.2-1.3); CARBON DIOXIDE 26.2 mmol/L (21.0-32.0); CREATININE - SERUM 2.3 mg/dL (0.6-1.3); MAGNESIUM - SERUM 2.4 mg/dL (1.8-2.4); PHOSPHOROUS 3.1 mg/dL (2.5-4.9); POTASSIUM - SERUM 3.8 mmol/L (3.5-5.1); PROTEIN - SERUM 6.1 g/dL (6.4-8.2)
[2017-10-31 08:29] LABS: HEMATOCRIT 30.3 % (36.0-48.0)
[2017-10-31 16:15] LABS: HEMATOCRIT 29.1 % (36.0-48.0); HEMOGLOBIN 9.7 g/dL (12-16)
[2017-11-01] VITALS (21 sets, daily range): BP systolic 124–178; BP diastolic 56–87; Ht 157.5 cm; Wt 99.2 kg
[2017-11-01 05:14] LABS: BASOPHILS 0 % (0-2); EOSINOPHILS 0 % (0-7); HEMATOCRIT 28.8 % (36.0-48.0); HEMOGLOBIN 9.6 g/dL (12-16); IMMATURE GRANULOCYTES 0.7 % (0-5); LYMPHOCYTES 2.4 % (15-50); MCHC 33.3 g/dL (31.0-37.0); MCV 81.1 fL (80.0-100.0); MEAN PLATELET VOLUME 11.3 fL (7.4-10.4); NEUTROPHILS 90.9 % (40-80); PLATELET COUNT 407 10x3/uL (130-400); RBC 3.55 10x6/uL (4.00-5.40)
[2017-11-01 05:15] LABS: WBC 11.5 10x3/uL (4.8-10.8)
[2017-11-01 05:33] LABS: ALBUMIN 2.1 g/dL (3.4-5.0); ANION GAP 9.8 mmol/L (8-16); BILIRUBIN - TOTAL 0.82 mg/dL (0.2-1.3); CALCIUM 7.8 mg/dL (8.5-10.1); CARBON DIOXIDE 25.7 mmol/L (21.0-32.0); CREATININE - SERUM 2.2 mg/dL (0.6-1.3); MAGNESIUM - SERUM 2.3 mg/dL (1.8-2.4); PHOSPHOROUS 3.1 mg/dL (2.5-4.9); POTASSIUM - SERUM 3.5 mmol/L (3.5-5.1); PROTEIN - SERUM 5.6 g/dL (6.4-8.2)
[2017-11-02] VITALS (9 sets, daily range): BP systolic 132–157; BP diastolic 61–76
[2017-11-02 06:04] LABS: ANION GAP 8.9 mmol/L (8-16); CALCIUM 7.8 mg/dL (8.5-10.1); CARBON DIOXIDE 25.8 mmol/L (21.0-32.0); CREATININE - SERUM 2.2 mg/dL (0.6-1.3); POTASSIUM - SERUM 3.7 mmol/L (3.5-5.1)
[2017-11-02 06:08] LABS: HEMATOCRIT 26.8 % (36.0-48.0); HEMOGLOBIN 9.2 g/dL (12-16); LYMPHOCYTES 2.5 % (15-50); MCHC 34.3 g/dL (31.0-37.0); MCV 81.7 fL (80.0-100.0); MEAN PLATELET VOLUME 11.1 fL (7.4-10.4); NEUTROPHILS 91.6 % (40-80); PLATELET COUNT 358 10x3/uL (130-400); RBC 3.28 10x6/uL (4.00-5.40); RDW 14.8 % (11.5-14.5); WBC 12.7 10x3/uL (4.8-10.8)
[2017-11-02 08:17] LABS: SPE - A/G RATIO 0.8 (0.7-1.7); SPE - ALBUMIN 2.5 g/dL (2.9-4.4); SPE - ALPHA-1 GLOBULIN 0.5 g/dL (0.0-0.4); SPE - ALPHA-2 GLOBULIN 0.7 g/dL (0.4-1.0); SPE - BETA GLOBULIN 0.6 g/dL (0.7-1.3); SPE - GAMMA GLOBULIN 1.3 g/dL (0.4-1.8); SPE - M-SPIKE 0.2 g/dL (Not Observed); SPE - TOTAL PROTEIN 5.6 g/dL (6.0-8.5)
[2017-11-03] VITALS (20 sets, daily range): BP systolic 125–159; BP diastolic 56–89
[2017-11-03 05:09] LABS: BASOPHILS 0.1 % (0-2); EOSINOPHILS 0 % (0-7); HEMATOCRIT 28.2 % (36.0-48.0); HEMOGLOBIN 9.2 g/dL (12-16); IMMATURE GRANULOCYTES 1.5 % (0-5); LYMPHOCYTES 2.2 % (15-50); MCH 26.9 pg (26.0-34.0); MCHC 32.6 g/dL (31.0-37.0); MCV 82.5 fL (80.0-100.0); MEAN PLATELET VOLUME 11.8 fL (7.4-10.4); MONOCYTES 3.9 % (2-11); NEUTROPHILS 92.3 % (40-80); PLATELET COUNT 394 10x3/uL (130-400); RBC 3.42 10x6/uL (4.00-5.40); RDW 15.1 % (11.5-14.5); WBC 16.7 10x3/uL (4.8-10.8)
[2017-11-03 05:40] LABS: ALBUMIN 2.1 g/dL (3.4-5.0); ANION GAP 14.7 mmol/L (8-16); BILIRUBIN - TOTAL 0.72 mg/dL (0.2-1.3); CALCIUM 7.5 mg/dL (8.5-10.1); CARBON DIOXIDE 20.9 mmol/L (21.0-32.0); CREATININE - SERUM 2.4 mg/dL (0.6-1.3); MAGNESIUM - SERUM 2.2 mg/dL (1.8-2.4); PHOSPHOROUS 4.3 mg/dL (2.5-4.9); POTASSIUM - SERUM 3.6 mmol/L (3.5-5.1); PROTEIN - SERUM 5.1 g/dL (6.4-8.2)
[2017-11-03 10:20] LABS: UPE RAND - ALBUMIN 62.7 % (()); UPE RAND - ALPHA 1 GLOBULIN 1.8 % (()); UPE RAND - ALPHA 2 GLOBULIN 0.4 % (()); UPE RAND - BETA GLOBULIN 6.9 % (()); UPE RAND - GAMMA GLOBULIN 28.2 % (())
[2017-11-04] VITALS (18 sets, daily range): BP systolic 107–168; BP diastolic 55–96
[2017-11-04 05:27] LABS: BASOPHILS 0.1 % (0-2); EOSINOPHILS 0 % (0-7); HEMATOCRIT 28.1 % (36.0-48.0); HEMOGLOBIN 9.3 g/dL (12-16); IMMATURE GRANULOCYTES 1.5 % (0-5); LYMPHOCYTES 3.4 % (15-50); MCH 27.3 pg (26.0-34.0); MCHC 33.1 g/dL (31.0-37.0); MCV 82.4 fL (80.0-100.0); MEAN PLATELET VOLUME 11.9 fL (7.4-10.4); MONOCYTES 4.1 % (2-11); NEUTROPHILS 90.9 % (40-80); PLATELET COUNT 375 10x3/uL (130-400); RBC 3.41 10x6/uL (4.00-5.40); RDW 15.2 % (11.5-14.5); WBC 19.9 10x3/uL (4.8-10.8)
[2017-11-04 05:47] LABS: ANION GAP 13.3 mmol/L (8-16); BILIRUBIN - TOTAL 0.71 mg/dL (0.2-1.3); CALCIUM 7.5 mg/dL (8.5-10.1); CARBON DIOXIDE 20.5 mmol/L (21.0-32.0); CREATININE - SERUM 2.5 mg/dL (0.6-1.3); MAGNESIUM - SERUM 1.9 mg/dL (1.8-2.4); PHOSPHOROUS 4.3 mg/dL (2.5-4.9); POTASSIUM - SERUM 3.8 mmol/L (3.5-5.1); PROTEIN - SERUM 4.9 g/dL (6.4-8.2)
[2017-11-05] VITALS (12 sets, daily range): BP systolic 128–145; BP diastolic 42–70
[2017-11-05 03:12] LABS: BASOPHILS 0 % (0-2); EOSINOPHILS 0 % (0-7); HEMATOCRIT 27.2 % (36.0-48.0); HEMOGLOBIN 9.2 g/dL (12-16); IMMATURE GRANULOCYTES 1.5 % (0-5); LYMPHOCYTES 3.5 % (15-50); MCH 27.5 pg (26.0-34.0); MCHC 33.8 g/dL (31.0-37.0); MCV 81.4 fL (80.0-100.0); MEAN PLATELET VOLUME 12.1 fL (7.4-10.4); MONOCYTES 3.8 % (2-11); NEUTROPHILS 91.2 % (40-80); PLATELET COUNT 373 10x3/uL (130-400); RBC 3.34 10x6/uL (4.00-5.40); RDW 15.6 % (11.5-14.5)
[2017-11-05 03:16] LABS: WBC 19.2 10x3/uL (4.8-10.8)
[2017-11-05 03:26] LABS: APTT 34.6 SECONDS (22.8-39.4); INR 1.36 (0.85-1.17); PROTIME 16.3 SECONDS (11.6-15.0)
[2017-11-05 03:29] LABS: CALCIUM 7.5 mg/dL (8.5-10.1); CARBON DIOXIDE 22.2 mmol/L (21.0-32.0); CREATININE - SERUM 2.7 mg/dL (0.6-1.3); PHOSPHOROUS 5.1 mg/dL (2.5-4.9); POTASSIUM - SERUM 4.2 mmol/L (3.5-5.1)
[2017-11-06 00:51] VITALS: BP 129/52
[2017-11-06 04:32] VITALS: BP 137/56
[2017-11-06 04:47] LABS: BASOPHILS 0 % (0-2); EOSINOPHILS 0 % (0-7); HEMOGLOBIN 9.4 g/dL (12-16); IMMATURE GRANULOCYTES 1.9 % (0-5); LYMPHOCYTES 1.5 % (15-50); MCHC 33.6 g/dL (31.0-37.0); MCV 80.5 fL (80.0-100.0); MEAN PLATELET VOLUME 12.3 fL (7.4-10.4); MONOCYTES 6.2 % (2-11); NEUTROPHILS 90.4 % (40-80); PLATELET COUNT 382 10x3/uL (130-400); RBC 3.48 10x6/uL (4.00-5.40); RDW 15.8 % (11.5-14.5); WBC 21.1 10x3/uL (4.8-10.8)
[2017-11-06 04:52] LABS: CALCIUM 7.7 mg/dL (8.5-10.1); CARBON DIOXIDE 20.6 mmol/L (21.0-32.0); CREATININE - SERUM 3.1 mg/dL (0.6-1.3); POTASSIUM - SERUM 4.6 mmol/L (3.5-5.1)
[2017-11-06 07:54] VITALS: BP 144/57
[2017-11-06 11:28] VITALS: BP 174/53
[2017-11-06 15:22] VITALS: BP 164/62
[2017-11-06 19:00] VITALS: BP 126/48
[2017-11-07] VITALS: BP 163/65
[2017-11-07 04:00] VITALS: BP 162/63
[2017-11-07 08:24] VITALS: BP 149/62
[2017-11-07 11:36] VITALS: BP 136/60
[2017-11-07 15:41] VITALS: BP 165/62
[2017-11-07 20:00] VITALS: BP 167/64
[2017-11-08] VITALS: BP 156/66
[2017-11-08 04:00] VITALS: BP 158/68
[2017-11-08 08:42] VITALS: BP 162/65
[2017-11-08 11:43] VITALS: BP 160/64
[2017-11-08 12:20] LABS: HEMATOCRIT 29.6 % (36.0-48.0); HEMOGLOBIN 9.9 g/dL (12-16); MCH 27.1 pg (26.0-34.0); MCHC 33.4 g/dL (31.0-37.0); MCV 81.1 fL (80.0-100.0); MEAN PLATELET VOLUME 12.3 fL (7.4-10.4); PLATELET COUNT 366 10x3/uL (130-400); RBC 3.65 10x6/uL (4.00-5.40); RDW 15.9 % (11.5-14.5); WBC 27.3 10x3/uL (4.8-10.8)
[2017-11-08 12:38] LABS: ANION GAP 12.7 mmol/L (8-16); BILIRUBIN - TOTAL 0.6 mg/dL (0.2-1.3); CALCIUM 7.8 mg/dL (8.5-10.1); CARBON DIOXIDE 23.5 mmol/L (21.0-32.0); CREATININE - SERUM 3.2 mg/dL (0.6-1.3); POTASSIUM - SERUM 5.2 mmol/L (3.5-5.1); PROTEIN - SERUM 5.1 g/dL (6.4-8.2)
[2017-11-08 13:25] LABS: LYMPHOCYTES 4 % (15-50); MONOCYTES 14 % (2-11); NEUTROPHILS 75 % (40-80); PLATELET ESTIMATE NORMAL
[2017-11-08 17:20] VITALS: BP 168/61
[2017-11-08 20:00] VITALS: BP 148/48
[2017-11-09 04:00] VITALS: BP 154/55
[2017-11-09 05:07] LABS: BASOPHILS 0.1 % (0-2); EOSINOPHILS 0 % (0-7); HEMATOCRIT 27.6 % (36.0-48.0); HEMOGLOBIN 9.2 g/dL (12-16); IMMATURE GRANULOCYTES 1.4 % (0-5); LYMPHOCYTES 1.8 % (15-50); MCHC 33.3 g/dL (31.0-37.0); MCV 80.9 fL (80.0-100.0); MEAN PLATELET VOLUME 12.7 fL (7.4-10.4); MONOCYTES 5.6 % (2-11); NEUTROPHILS 91.1 % (40-80); PLATELET COUNT 361 10x3/uL (130-400); RBC 3.41 10x6/uL (4.00-5.40); RDW 16.1 % (11.5-14.5); WBC 24.6 10x3/uL (4.8-10.8)
[2017-11-09 05:23] LABS: ALBUMIN 2.1 g/dL (3.4-5.0); ANION GAP 14.1 mmol/L (8-16); BILIRUBIN - TOTAL 0.56 mg/dL (0.2-1.3); CALCIUM 7.8 mg/dL (8.5-10.1); CARBON DIOXIDE 22.2 mmol/L (21.0-32.0); CREATININE - SERUM 3.3 mg/dL (0.6-1.3); POTASSIUM - SERUM 5.3 mmol/L (3.5-5.1); PROTEIN - SERUM 4.9 g/dL (6.4-8.2)
[2017-11-09 08:30] VITALS: BP 167/55
[2017-11-09 11:53] VITALS: BP 147/64
[2017-11-09 16:02] VITALS: BP 188/63
[2017-11-09 20:00] VITALS: BP 151/54
[2017-11-10] VITALS: BP 148/60
[2017-11-10 06:33] LABS: ANION GAP 15.3 mmol/L (8-16); CALCIUM 7.5 mg/dL (8.5-10.1); CARBON DIOXIDE 21.7 mmol/L (21.0-32.0); CREATININE - SERUM 3.2 mg/dL (0.6-1.3); MAGNESIUM - SERUM 2.4 mg/dL (1.8-2.4); PHOSPHOROUS 5.7 mg/dL (2.5-4.9)
[2017-11-10 06:34] LABS: HEMATOCRIT 25.8 % (36.0-48.0); HEMOGLOBIN 8.8 g/dL (12-16); MCH 27.3 pg (26.0-34.0); MCHC 34.1 g/dL (31.0-37.0); MCV 80.1 fL (80.0-100.0); MEAN PLATELET VOLUME 12.7 fL (7.4-10.4); PLATELET COUNT 325 10x3/uL (130-400); RBC 3.22 10x6/uL (4.00-5.40); RDW 16.1 % (11.5-14.5); WBC 23.3 10x3/uL (4.8-10.8)
[2017-11-10 08:01] LABS: LYMPHOCYTES 3 % (15-50); MONOCYTES 3 % (2-11); NEUTROPHILS 93 % (40-80); PLATELET ESTIMATE NORMAL
[2017-11-10 08:05] VITALS: BP 193/61
[2017-11-10 11:21] VITALS: BP 207/61
[2017-11-10 16:02] VITALS: BP 180/50
[2017-11-10 19:00] VITALS: BP 173/56
[2017-11-11] VITALS: BP 192/57
[2017-11-11 03:35] VITALS: BP 188/52
[2017-11-11 05:42] LABS: BASOPHILS 0.1 % (0-2); EOSINOPHILS 0 % (0-7); HEMATOCRIT 24.8 % (36.0-48.0); HEMOGLOBIN 8.5 g/dL (12-16); LYMPHOCYTES 3.6 % (15-50); MCH 27.3 pg (26.0-34.0); MCHC 34.3 g/dL (31.0-37.0); MCV 79.7 fL (80.0-100.0); MEAN PLATELET VOLUME 12.2 fL (7.4-10.4); MONOCYTES 3.8 % (2-11); NEUTROPHILS 91.5 % (40-80); PLATELET COUNT 306 10x3/uL (130-400); RBC 3.11 10x6/uL (4.00-5.40); RDW 16.3 % (11.5-14.5); WBC 18.6 10x3/uL (4.8-10.8)
[2017-11-11 06:08] LABS: ANION GAP 14.9 mmol/L (8-16); CARBON DIOXIDE 22.5 mmol/L (21.0-32.0); CREATININE - SERUM 3.3 mg/dL (0.6-1.3); POTASSIUM - SERUM 5.4 mmol/L (3.5-5.1)
[2017-11-11 07:59] VITALS: BP 169/62
[2017-11-11 11:12] VITALS: BP 108/48
[2017-11-11 13:03] LABS: APPEARANCE TURBID (CLEAR); BACTERIA MANY /hpf (NONE SEEN); BILIRUBIN NEGATIVE (NEGATIVE); COLOR RED (YELLOW); GLUCOSE NEGATIVE (NEGATIVE); KETONE NEGATIVE (NEGATIVE); NITRITE NEGATIVE (NEGATIVE); PROTEIN 3+ mg/dL (NEGATIVE); RED CELLS - URINE >50 /hpf (0-5); SPECIFIC GRAVITY 1.015 (1.005-1.020); UROBILINOGEN NORMAL (NORMAL); WHITE CELLS - URINE >50 /hpf (0-5)
[2017-11-11 13:04] LABS: MUCUS <1+ /lpf (NONE SEEN); YEAST >1+ WITH HYPHAE /hpf (NONE SEEN)
[2017-11-11 13:05] LABS: EPITHELIAL CELLS RARE /hpf (0-5)
[2017-11-11 15:11] VITALS: BP 209/63
[2017-11-11 20:00] VITALS: BP 191/55
[2017-11-12] VITALS: BP 205/61
[2017-11-12 04:00] VITALS: BP 211/61
[2017-11-12 06:22] LABS: BASOPHILS 0 % (0-2); EOSINOPHILS 0.2 % (0-7); HEMATOCRIT 29.2 % (36.0-48.0); IMMATURE GRANULOCYTES 0.7 % (0-5); LYMPHOCYTES 5.4 % (15-50); MCH 27.4 pg (26.0-34.0); MCHC 34.2 g/dL (31.0-37.0); MEAN PLATELET VOLUME 12.5 fL (7.4-10.4); MONOCYTES 2.5 % (2-11); NEUTROPHILS 91.2 % (40-80); PLATELET COUNT 282 10x3/uL (130-400); RBC 3.65 10x6/uL (4.00-5.40); RDW 15.8 % (11.5-14.5); WBC 26.7 10x3/uL (4.8-10.8)
[2017-11-12 06:27] LABS: ALBUMIN 2.9 g/dL (3.4-5.0); ANION GAP 13.1 mmol/L (8-16); BILIRUBIN - TOTAL 0.67 mg/dL (0.2-1.3); CALCIUM 8.3 mg/dL (8.5-10.1); CREATININE - SERUM 3.2 mg/dL (0.6-1.3); MAGNESIUM - SERUM 2.6 mg/dL (1.8-2.4); PHOSPHOROUS 6.3 mg/dL (2.5-4.9); POTASSIUM - SERUM 5.1 mmol/L (3.5-5.1); PROTEIN - SERUM 5.3 g/dL (6.4-8.2)
[2017-11-12 08:53] VITALS: BP 192/68
[2017-11-12 13:36] VITALS: BP 192/74
[2017-11-12 16:27] VITALS: BP 154/72
[2017-11-12 20:00] VITALS: BP 223/76
[2017-11-13] VITALS: BP 188/70
[2017-11-13 07:20] LABS: BASOPHILS 0 % (0-2); EOSINOPHILS 1.4 % (0-7); HEMOGLOBIN 9.8 g/dL (12-16); IMMATURE GRANULOCYTES 0.6 % (0-5); LYMPHOCYTES 2.6 % (15-50); MCH 27.3 pg (26.0-34.0); MCHC 33.8 g/dL (31.0-37.0); MCV 80.8 fL (80.0-100.0); MEAN PLATELET VOLUME 12.4 fL (7.4-10.4); MONOCYTES 3.6 % (2-11); NEUTROPHILS 91.8 % (40-80); PLATELET COUNT 210 10x3/uL (130-400); RBC 3.59 10x6/uL (4.00-5.40); RDW 15.7 % (11.5-14.5); WBC 21.5 10x3/uL (4.8-10.8)
[2017-11-13 07:29] LABS: CALCIUM 8.5 mg/dL (8.5-10.1); CARBON DIOXIDE 24.6 mmol/L (21.0-32.0); CREATININE - SERUM 3.1 mg/dL (0.6-1.3); POTASSIUM - SERUM 4.6 mmol/L (3.5-5.1)
[2017-11-13 07:45] VITALS: BP 131/68
[2017-11-13 10:50] VITALS: BP 173/57
[2017-11-13 14:58] VITALS: BP 154/74
[2017-11-13 21:40] VITALS: BP 174/60
[2017-11-14] VITALS (7 sets, daily range): BP systolic 95–210; BP diastolic 53–65
[2017-11-14 08:35] LABS: BASOPHILS 0 % (0-2); EOSINOPHILS 1.2 % (0-7); HEMATOCRIT 28.8 % (36.0-48.0); HEMOGLOBIN 9.6 g/dL (12-16); IMMATURE GRANULOCYTES 0.5 % (0-5); LYMPHOCYTES 2.6 % (15-50); MCHC 33.3 g/dL (31.0-37.0); MCV 81.1 fL (80.0-100.0); MEAN PLATELET VOLUME 12.8 fL (7.4-10.4); MONOCYTES 2.6 % (2-11); NEUTROPHILS 93.1 % (40-80); RBC 3.55 10x6/uL (4.00-5.40); RDW 15.9 % (11.5-14.5); WBC 17.5 10x3/uL (4.8-10.8)
[2017-11-14 08:36] LABS: PLATELET COUNT 160 10x3/uL (130-400)
[2017-11-14 08:49] LABS: CALCIUM 8.3 mg/dL (8.5-10.1); CARBON DIOXIDE 26.8 mmol/L (21.0-32.0); CREATININE - SERUM 3.1 mg/dL (0.6-1.3)
[2017-11-14 08:51] LABS: POTASSIUM - SERUM 3.8 mmol/L (3.5-5.1)
[2017-11-15 01:24] VITALS: BP 172/48
[2017-11-15 04:46] LABS: BASOPHILS 0.1 % (0-2); EOSINOPHILS 1.8 % (0-7); HEMATOCRIT 28.4 % (36.0-48.0); HEMOGLOBIN 9.4 g/dL (12-16); IMMATURE GRANULOCYTES 0.4 % (0-5); LYMPHOCYTES 2.6 % (15-50); MCH 26.8 pg (26.0-34.0); MCHC 33.1 g/dL (31.0-37.0); MCV 80.9 fL (80.0-100.0); MEAN PLATELET VOLUME 12.9 fL (7.4-10.4); MONOCYTES 1.8 % (2-11); NEUTROPHILS 93.3 % (40-80); PLATELET COUNT 130 10x3/uL (130-400); RBC 3.51 10x6/uL (4.00-5.40); RDW 15.8 % (11.5-14.5); WBC 16.3 10x3/uL (4.8-10.8)
[2017-11-15 04:58] LABS: ALBUMIN 2.5 g/dL (3.4-5.0); ANION GAP 11.5 mmol/L (8-16); BILIRUBIN - TOTAL 0.78 mg/dL (0.2-1.3); CALCIUM 8.1 mg/dL (8.5-10.1); CARBON DIOXIDE 28.1 mmol/L (21.0-32.0); CREATININE - SERUM 3.1 mg/dL (0.6-1.3); MAGNESIUM - SERUM 2.3 mg/dL (1.8-2.4); PHOSPHOROUS 5.8 mg/dL (2.5-4.9); POTASSIUM - SERUM 3.6 mmol/L (3.5-5.1)
[2017-11-15 06:00] VITALS: BP 167/43
[2017-11-15 07:50] VITALS: BP 195/55
[2017-11-15 12:00] VITALS: BP 170/40
[2017-11-15 16:27] VITALS: BP 164/52
[2017-11-15 20:00] VITALS: BP 163/48
[2017-11-16] VITALS: BP 174/48
[2017-11-16 04:49] LABS: BASOPHILS 0.1 % (0-2); EOSINOPHILS 2.6 % (0-7); HEMOGLOBIN 8.3 g/dL (12-16); IMMATURE GRANULOCYTES 0.2 % (0-5); LYMPHOCYTES 3.2 % (15-50); MCHC 33.2 g/dL (31.0-37.0); MCV 81.4 fL (80.0-100.0); MEAN PLATELET VOLUME 12.3 fL (7.4-10.4); MONOCYTES 2.1 % (2-11); NEUTROPHILS 91.8 % (40-80); PLATELET COUNT 139 10x3/uL (130-400); RBC 3.07 10x6/uL (4.00-5.40); RDW 15.8 % (11.5-14.5)
[2017-11-16 04:57] LABS: WBC 11.6 10x3/uL (4.8-10.8)
[2017-11-16 05:03] LABS: ANION GAP 16.6 mmol/L (8-16); CALCIUM 7.5 mg/dL (8.5-10.1); CREATININE - SERUM 3.2 mg/dL (0.6-1.3); POTASSIUM - SERUM 3.6 mmol/L (3.5-5.1)
[2017-11-16 05:57] VITALS: BP 160/47
[2017-11-16 09:37] VITALS: BP 160/43
[2017-11-16 11:50] VITALS: BP 151/45
[2017-11-16 16:20] VITALS: BP 159/58
[2017-11-16 16:30] LABS: HEMATOCRIT 25.5 % (36.0-48.0); HEMOGLOBIN 8.6 g/dL (12-16)
[2017-11-16 20:00] VITALS: BP 155/56
[2017-11-17] VITALS: BP 150/60
[2017-11-17 04:00] VITALS: BP 148/60
[2017-11-17 05:45] LABS: BASOPHILS 0.1 % (0-2); EOSINOPHILS 4.8 % (0-7); HEMATOCRIT 23.7 % (36.0-48.0); IMMATURE GRANULOCYTES 0.1 % (0-5); LYMPHOCYTES 3.4 % (15-50); MCH 27.6 pg (26.0-34.0); MCHC 33.8 g/dL (31.0-37.0); MCV 81.7 fL (80.0-100.0); MEAN PLATELET VOLUME 12.6 fL (7.4-10.4); NEUTROPHILS 90.6 % (40-80); PLATELET COUNT 132 10x3/uL (130-400); RDW 15.5 % (11.5-14.5)
[2017-11-17 06:08] LABS: ANION GAP 14.6 mmol/L (8-16); CALCIUM 7.4 mg/dL (8.5-10.1); CARBON DIOXIDE 27.5 mmol/L (21.0-32.0); CREATININE - SERUM 3.6 mg/dL (0.6-1.3); POTASSIUM - SERUM 3.1 mmol/L (3.5-5.1); VANCOMYCIN - RANDOM 12.5 ug/mL (10.0-20.0)
[2017-11-17 06:18] LABS: WBC 6.7 10x3/uL (4.8-10.8)
[2017-11-17 08:37] VITALS: BP 175/59
[2017-11-17 12:35] VITALS: BP 165/60
[2017-11-17 16:35] VITALS: BP 188/58
[2017-11-17 16:57] LABS: HEMOGLOBIN 8.9 g/dL (12-16)
[2017-11-17 21:41] VITALS: BP 159/54
[2017-11-17 21:58] LABS: HEMATOCRIT 27.5 % (36.0-48.0); HEMOGLOBIN 9.2 g/dL (12-16)
[2017-11-18 00:41] VITALS: BP 168/64
[2017-11-18 04:55] LABS: BASOPHILS 0.2 % (0-2); EOSINOPHILS 6.4 % (0-7); HEMATOCRIT 27.8 % (36.0-48.0); HEMOGLOBIN 9.5 g/dL (12-16); IMMATURE GRANULOCYTES 0.4 % (0-5); LYMPHOCYTES 4.8 % (15-50); MCH 28.1 pg (26.0-34.0); MCHC 34.2 g/dL (31.0-37.0); MCV 82.2 fL (80.0-100.0); MEAN PLATELET VOLUME 11.5 fL (7.4-10.4); MONOCYTES 1.1 % (2-11); NEUTROPHILS 87.1 % (40-80); PLATELET COUNT 110 10x3/uL (130-400); RBC 3.38 10x6/uL (4.00-5.40); RDW 15.3 % (11.5-14.5)
[2017-11-18 05:11] LABS: WBC 4.6 10x3/uL (4.8-10.8)
[2017-11-18 05:31] LABS: ANION GAP 16.1 mmol/L (8-16); CALCIUM 7.3 mg/dL (8.5-10.1); CARBON DIOXIDE 27.3 mmol/L (21.0-32.0); CREATININE - SERUM 3.8 mg/dL (0.6-1.3); POTASSIUM - SERUM 3.4 mmol/L (3.5-5.1)
[2017-11-18 05:32] VITALS: BP 176/64
[2017-11-18 07:33] VITALS: BP 163/57
[2017-11-18] MEDS ORDERED: BUMINATE50 ML IV (08:29)
[2017-11-18] MEDS ORDERED: BENADRYL INJ50 MG/ML IV (08:30)
[2017-11-18] MEDS ORDERED: LASIX INJ40 MG/4 ML IV (08:31)
[2017-11-18] MEDS ORDERED: SODIUM CL 0.91000 ML IV (08:33)
[2017-11-18] MEDS ORDERED: ONDANSETRON4 MG/2 M3 IV (08:34)
[2017-11-18] MEDS ORDERED: PROTONIX I40 MG/VIAL IV (08:34)
[2017-11-18] MEDS ORDERED: ZOSYN 3.3753.375 G1 IV (08:34)
[2017-11-18] MEDS ORDERED: LABETALOL HCL5 MG/M1 IV (08:35)
[2017-11-18 10:18] LABS: HEMATOCRIT 30.1 % (36.0-48.0)
== END 2017-11-18 11:14 | disposition short-term general hospital (02) | DRG 166 ==
LOC: D.ER 07:15 → D.ICU 08:43 → D.M2 08:43 → D.ICU 10-27 13:05 → D.M2 11-05 16:47
PROVIDERS: Emergency Medicine; Family Medicine; Internal Medicine Gastroenterology; Internal Medicine Nephrology; Internal Medicine Pulmonary Disease
PROC: 05H633Z Insertion of Infusion Device into Left Subclavian Vein, Percutaneous Approach (ICD-10-PCS; principal; 2017-10-27)
PROC: 06H03DZ Insertion of Intraluminal Device into Inferior Vena Cava, Percutaneous Approach (ICD-10-PCS; 2017-10-28)
PROC: 5A09457 Assistance with Respiratory Ventilation, 24-96 Consecutive Hours, Continuous Positive Airway Pressure (ICD-10-PCS; 2017-10-28)
DX: J69.0 Pneumonitis due to inhalation of food and vomit (principal); J96.01 Acute respiratory failure with hypoxia; I50.33 Acute on chronic diastolic (congestive) heart failure; A41.9 Sepsis, unspecified organism; K92.2 Gastrointestinal hemorrhage, unspecified; I82.512 Chronic embolism and thrombosis of left femoral vein; N17.9 Acute kidney failure, unspecified; N39.0 Urinary tract infection, site not specified; D64.9 Anemia, unspecified; E11.9 Type 2 diabetes mellitus without complications; I11.0 Hypertensive heart disease with heart failure; Z66 Do not resuscitate; I48.91 Unspecified atrial fibrillation; I27.20 Pulmonary hypertension, unspecified